=== PATIENT | male | born 1950 | race Caucasian/White ===

== ENCOUNTER 2021-02-26 15:22 | Inpatient (IN) ==
[2021-02-26] MEDS ORDERED: dexAMETHasone**PF** 10 MG/ML VIAL IV ONE (15:47)
[2021-02-26] MEDS ORDERED: SODIUM CHLORIDE 0.9% 500 ML IV ONE ×2 (15:47→17:12)
[2021-02-26] MEDS ORDERED: ACETAMINOPHEN 1,000 MG/100 ML VIAL IV STA (15:58)
[2021-02-26] MEDS ORDERED: ALBUTEROL HFA 8 GM INHALER INH ONE (15:58)
[2021-02-26] MEDS ORDERED: guaiFENesin 600 MG TABCR PO STA (15:58)
[2021-02-26] MEDS ORDERED: FAMOTIDINE 20MG IV PUSH 20 MG/5 ML SYR IV STA (15:59)
[2021-02-26] MEDS ORDERED: ONDANSETRON INJ 2 MG/ML 2 ML VIAL IV STA (15:59)
[2021-02-26] MEDS ORDERED: SODIUM CHLORIDE 0.9% 1000ML 1,000 ML IV SCH (16:00)
[2021-02-26 16:03] LABS: Hemoglobin 10.6 g/dL (14.0-18.0); Mean Corpuscular Hemoglobin 30.8 pg (25-34); Mean Corpuscular Hgb Conc 35.3 g/dL (32-36); Mean Corpuscular Volume 87.2 fL (80-100); Mean Platelet Volume 9.7 fL (7.4-10.4); Platelet Count 184 K/uL (130-400); RDW Coefficient of Variation 12.9 % (11.5-14.5); RDW Standard Deviation 41.7 fL (36.4-46.3); Red Blood Count 3.44 M/uL (4.7-6.1)
--- NOTE | 2021-02-26 16:09 | Emergency Department Note ---
Impression & Plan Pneumonia due to COVID-19 virus, Hyperglycemia, Renal insufficiency, Hypoxia ED Provider Note NAME: LANDRY OSBORNE AGE: 70 SEX: M ARRIVES VIA: Ambulance INFORMANT: Patient, ED PROVIDER(S): Ashish Ulloa MD CHIEF COMPLAINT: Weakness, sob, covid-19. PLAN: Disposition: Admit MEDICAL DECISION MAKING: The patient is a pleasant 70-year-old gentleman with a past medical history of Parkinson disease (per patient) who presents to the emergency department for worsening generalized weakness and shortness of breath this morning with O2 saturation 87% on room air by EMS in the setting of being diagnosed with COVID- 19 last week on hospital admission to [facility] after having a mechanical fall. Patient reports feeling feverishness, body aches and fatigue and generalized weakness that began approximately 10 days ago which contributed to his fall given his chronic fall risk in the setting of his Parkinson's. He reports that he had negative x-rays and CAT scan of his head but they did diagnose him with COVID-19 in addition to new onset atrial fibrillation. He remembers he was put on a blood thinner but does not recall the name at this time. He reports he did have a fall where he hit his forehead a couple of days after his discharge (Tuesday/Tuesday) but did not seek medical evaluation given that he did not have any abrasions this time. He reports he was thinking he was starting to feel better up until yesterday but this morning felt acutely worse. He reports feverishness, body aches, nausea but no vomiting but limited oral intake. He not take any of his medications including his Parkinson's medications today but he does not recall names of his medications. Attempt in progress to obtain Critical access hospital records. The patient is fatigued, ill-appearing but no acute distress, afebrile with stable vital signs. He appears clinically dry. He has no focal neurologic deficits. He has baseline mild rigidity with movements. EKG without overt acute ischemia. CXR with bilateral airspace opacities c/w known covid-19 infection. WBC 4.3K with lymphopenia to 0.22. H/H 10.6/30.0 without prior for comparison. Platelets wnl. VBG without significant abnormalities. Glucose 300s. Chemistry with Bicarb of 14 without Agap elevation. BHB not significantly elevated. Serum Osms wnl. Creatinine 2.2 without prior for comparison. BUN/Cr > 20 c/w patient's clinically dry appearance. AST 86 abd otherwise, LFTs without significant abnormalities. Lipase wnl. UA without convincing evidence of infection. CT head negative for acute process with left maxillary sinus disease noted in setting of Covid-19. Treatment initiated in ED with IVF hydration, apap, dexamethasone, guaifenesin, and albuterol MDI. Given worsening symptoms, no with hypoxia in setting of Covid-19 pna, reasonable to admit for further management. Patient agrees with this. Case was d/w Dr. Eckert [facility] [place] hospitalist who will evaluate the patient for admission. Triage Nursing notes reviewed and agree them. Prior medical records reviewed Vital Signs: reviewed and remarkable for hypoxia. Differential diagnosis: Infection, dehydration, metabolic abnormality, hypo/hyperglycemia, electrolyte disturbance, anemia, hypoxia, cardiac sources, intracerebral event, toxicologic, neurologic, as well as other pathologies. ER treatment provided: See below. Diagnostics interpreted by me: ECG: Atrial flutter, 82 bpm, no ectopy, no overt ST elevation or depression. Cardiac Monitoring: An order for continuous cardiac monitoring was placed and demonstrated Atrial flutter, 82 bpm, no ectopy. Laboratory studies: See below Imaging studies: See below Consultation(s): Case was d/w Dr. Eckert [facility] [place] hospitalist who will evaluate the patient for admission. HPI: The patient is a pleasant 70-year-old gentleman with a past medical history of Parkinson disease who presents emergency department for worsening generalized weakness and shortness of breath this morning with O2 saturation 87% on room air by EMS in the setting of being diagnosed with COVID-19 last week on hospital admission to [facility] after having a mechanical fall. Patient reports feeling feverishness, body aches and fatigue and generalized weakness that began approximately 10 days ago which contributed to his fall given his chronic fall risk in the setting of his Parkinson's. He reports that he had negative x-rays and CAT scan of his head but they did diagnose him with COVID-19 in addition to new onset atrial fibrillation. He remembers he was put on a blood thinner but does not recall the name at this time. He reports he did have a fall where he hit his forehead a couple of days after his discharge (Tuesday/Tuesday) but did not seek medical evaluation given that he did not have any abrasions this time. He reports he was thinking he was starting to feel better up until yesterday but this morning felt acutely worse. He reports feverishness, body aches, nausea but no vomiting but limited oral intake. He not take any of his medications including his Parkinson's medications today. ROS: See above HPI for pertinent positives & negatives. A total of 10 systems reviewed and were otherwise negative. PAST MEDICAL HISTORY:See Below PAST SURGICAL HISTORY:See Below FAMILY HISTORY:See Below SOCIAL HISTORY:See Below HOME MEDICATIONS:See Below ALLERGIES:See Below VITALS:See Below PHYSICAL EXAMINATION: GENERAL: Awake, alert, fatigued/ill-appearing, in no distress HENT: Normocephalic. Old scalp abrasion with overlying eschar and resolving right frontal contusion. No bony crepitus. Oropharynx with dry mucous membranes and otherwise unremarkable. EYES: Normal conjunctiva. Sclera non-icteric. NECK: Supple. No nuchal rigidity. FROM. No JVD. RESPIRATORY: Clear to auscultation. CARDIAC: Regular rate, normal rhythm. Extremities warm and well perfused. Pulses equal. ABDOMEN: Soft, non-distended. No tenderness to palpation. No rebound or guarding. No masses. RECTAL: Deferred. MUSCULOSKELETAL: Chest examination reveals no tenderness. The back is symmetrical on inspection without obvious abnormality. There is no CVA tenderness to palpation. No joint edema. LOWER EXTREMITIES: Calves are equal size bilaterally and non-tender. No edema. No discoloration. NEURO: No focal sensory or motor deficits noted. Masked facies. Mild baseline rigidity with movements in the setting of the patient's Parkinson disease. Generalized weakness with 4/5 strength in all extremities. SKIN: No rash or jaundice noted. 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 Dyslipidemia Essential hypertension GERD (gastroesophageal reflux disease) Normocytic anemia Obstructive sleep apnea Thoracic aortic aneurysm Type 2 diabetes mellitus Urinary retention Surgical History H/O left inguinal hernia repair History of surgical procedure on eye proper using laser Social History Smoking Status: Never smoker Second Hand Exposure: No; Do You Dip or Chew Tobacco: No; Tobacco Cessation Education Requested by Patient: No Hx Alcohol Use: No Hx Substance Use: No Preferred Language: Guyanese Communication Ability: Effective Inventory Specialist Manager Required: No Beliefs That Will Affect Care: None Current Living Situation: Spouse Other Information That Helps Us Care for You: No Feels Safe at Home: Yes Safety Concerns: Feels Safe At This Time Assistive Devices: CPAP, Glasses, Oxygen - Continuous and Walker Allergies Allergies Allergy/AdvReac Type Severity Reaction Status Date / Time atorvastatin [From Lipitor] AdvReac Myalgia Verified 02/26/21 18:02 rosuvastatin [From Crestor] AdvReac Myalgia Verified 02/26/21 18:02 simvastatin AdvReac Myalgia Verified 02/26/21 18:02 Home Meds Home Medications Medication Instructions Recorded Confirmed colesevelam [WelChol] 625 mg PO DAILY 02/26/21 02/26/21 dexamethasone [Decadron] 6 mg PO UD 02/26/21 02/26/21 ezetimibe 10 mg PO DAILY 02/26/21 02/26/21 hydralazine 100 mg PO TID 02/26/21 02/26/21 insulin lispro [Humalog KwikPen See Rx Instructions .ROUTE .COMPLEX 02/26/21 02/26/21 Insulin] isosorbide mononitrate 60 mg PO DAILY 02/26/21 02/26/21 lamotrigine 100 mg PO BID 02/26/21 02/26/21 patiromer calcium sorbitex 8.4 g PO DAILY 02/26/21 02/26/21 [Veltassa] pravastatin 20 mg PO DAILY 02/26/21 02/26/21 prazosin See Rx Instructions .ROUTE .COMPLEX 02/26/21 02/26/21 pregabalin 100 mg PO BID 02/26/21 02/26/21 primidone 50 mg PO UD 02/26/21 02/26/21 rivaroxaban [Xarelto] 20 mg PO DAILY 02/26/21 02/26/21 sodium bicarbonate 650 mg PO BID 02/26/21 02/26/21 spironolactone 100 mg PO BID 02/26/21 02/26/21 Results & Data (ED) Vital Signs Vital Signs - 24 hr 02/26/21 15:45 02/26/21 15:56 02/26/21 18:37 Temperature 36.1 C L 36.1 C L Temperature Source Oral Oral Pulse Rate 81 81 Pulse Rate [Left Finger] 72 74 Pulse Rhythm Regular Irregular Pulse Rhythm [Left Finger] Irregular Regular Pulse Strength Normal Pulse Strength [Left Finger] Normal Respiratory Rate 14 22 20 Respiratory Effort / Characteristics Non-Labored Respiratory Depth Normal Normal Normal Respiratory Pattern Regular Blood Pressure 147/71 H Blood Pressure [Left Arm] 147/71 H 156/87 H Blood Pressure Mean 96 Blood Pressure Mean [Left Arm] 96 110 Blood Pressure Position Lying Blood Pressure Position [Left Arm] Sitting Pulse Oximetry 92 96 95 Oxygen Delivery Method Room Air Room Air Sepsis Recent Fever Within 48 Hours No Sepsis New/Unexplained Change in Mental Status No Sepsis Action Taken by Nursing No Action Required Laboratory Data Attestation: I reviewed the patient's lab results. Result diagrams: 02/26/21 15:40 02/26/21 15:40 Lab Results 02/26/21 02/26/21 02/26/21 Range/Units 15:40 15:40 15:40 WBC 4.30 L (4.8-10.8) K/uL RBC 3.44 L (4.7-6.1) M/uL Hgb 10.6 L (14.0-18.0) g/dL Hct 30.0 L (42-52) % MCV 87.2 (80-100) fL MCH 30.8 (25-34) pg MCHC 35.3 (32-36) g/dL RDW Std Deviation 41.7 (36.4-46.3) fL RDW Coeff of Don 12.9 (11.5-14.5) % Plt Count 184 (130-400) K/uL MPV 9.7 (7.4-10.4) fL Immature Gran % (Auto) 0.2 % Neut % (Auto) 90.3 % Lymph % (Auto) 5.1 % Branch % (Auto) 4.4 % Eos % (Auto) 0.0 % Baso % (Auto) 0.0 % Neut # (Auto) 3.88 (1.4-6.5) K/uL Lymph # (Auto) 0.22 L (1.2-3.4) K/uL Branch # (Auto) 0.19 (0.11-0.59) K/uL Eos # (Auto) 0.00 (0-0.5) K/uL Baso # (Auto) 0.00 (0-0.2) K/uL Immature Gran # (Auto) 0.01 (0.00-0.02) K/uL PT 11.2 (9.0-12.0) Seconds INR 1.1 (0.9-1.1) VBG pH (7.36-7.41) VBG pCO2 (38-50) mmHg VBG pO2 mmHg VBG HCO3 mmol/L VBG O2 Saturation % VBG Base Excess mEq/L Barometric Pressure mm/Hg Sodium 131 L (136-145) mmol/L Potassium 4.6 (3.5-5.1) mmol/L Chloride 107 (98-107) mmol/L Carbon Dioxide 14 L (21-32) mmol/L Anion Gap 10.0 (3-11) BUN 44 H (7-18) mg/dl Creatinine 2.21 H (0.6-1.4) mg/dl Est Cr Clr Drug Dosing 34.0 ml/min Est GFR ( Amer) 34.0 Est GFR (Non-Af Amer) 29.3 BUN/Creatinine Ratio 20.1 H (10-20) Glucose 319 H* (70-99) mg/dl POC Glucose (70-99) mg/dl Osmolality (280-300) mOsm/kg Lactate (0.4-2.0) mmol/L Calcium 7.8 L (8.5-10.1) mg/dl Phosphorus 3.1 (2.5-4.9) mg/dl Magnesium 2.1 (1.8-2.4) mg/dl Total Bilirubin 0.5 (0.2-1) mg/dl Direct Bilirubin 0.2 (0-0.2) mg/dl AST 86 H (15-37) U/L ALT 78 (12-78) U/L Alkaline Phosphatase 60 (45-117) U/L Lactate Dehydrogenase (87-241) U/L Total Creatine Kinase 798 H (39-308) U/L Troponin I 0.015 (0-0.045) ng/ml C-Reactive Protein 11.60 H (0-0.29) mg/dl Total Protein 6.8 (6.4-8.2) gm/dl Albumin 2.7 L (3.4-5.0) gm/dl Globulin 4.1 H (2.5-4.0) gm/dl Albumin/Globulin Ratio 0.7 L (0.9-2) Lipase 221 (73-393) U/L Beta-Hydroxybutyric Acd 15.93 H (0.2-2.81) mg/dl Procalcitonin (0-0.5) ng/ml TSH 0.586 (0.300-4.500) uIu/ml Urine Color Urine Appearance (Clear) Urine pH (4.5-7.5) Ur Specific [place] (1.000-1.030) Urine Protein (Negative) Urine Glucose (UA) (Negative) Urine Ketones (Negative) Urine Blood (Negative) Urine Nitrite (Negative) Urine Bilirubin (Negative) Urine Urobilinogen (Negative) Ur Leukocyte Esterase (Negative) Urine WBC (Auto) (0-5) /hpf Urine RBC (Auto) (0-4) /hpf U Hyaline Cast (Auto) (0-5) /lpf U Epithel Cells (Auto) (0-5) /lpf Urine Bacteria (Auto) (Negative) Urine Yeast COVID-19 Eval Order SARS-CoV-2 (PCR) (Negative) Influenza Type A (PCR) (Neg) Influenza Type B (PCR) (Neg) RSV (RT-PCR) (Neg) 02/26/21 02/26/21 02/26/21 Range/Units 15:40 15:40 15:40 WBC (4.8-10.8) K/uL RBC (4.7-6.1) M/uL Hgb (14.0-18.0) g/dL Hct (42-52) % MCV (80-100) fL MCH (25-34) pg MCHC (32-36) g/dL RDW Std Deviation (36.4-46.3) fL RDW Coeff of Don (11.5-14.5) % Plt Count (130-400) K/uL MPV (7.4-10.4) fL Immature Gran % (Auto) % Neut % (Auto) % Lymph % (Auto) % Branch % (Auto) % Eos % (Auto) % Baso % (Auto) % Neut # (Auto) (1.4-6.5) K/uL Lymph # (Auto) (1.2-3.4) K/uL Branch # (Auto) (0.11-0.59) K/uL Eos # (Auto) (0-0.5) K/uL Baso # (Auto) (0-0.2) K/uL Immature Gran # (Auto) (0.00-0.02) K/uL PT (9.0-12.0) Seconds INR (0.9-1.1) VBG pH (7.36-7.41) VBG pCO2 (38-50) mmHg VBG pO2 mmHg VBG HCO3 mmol/L VBG O2 Saturation % VBG Base Excess mEq/L Barometric Pressure mm/Hg Sodium (136-145) mmol/L Potassium (3.5-5.1) mmol/L Chloride (98-107) mmol/L Carbon Dioxide (21-32) mmol/L Anion Gap (3-11) BUN (7-18) mg/dl Creatinine (0.6-1.4) mg/dl Est Cr Clr Drug Dosing ml/min Est GFR ( Amer) Est GFR (Non-Af Amer) BUN/Creatinine Ratio (10-20) Glucose (70-99) mg/dl POC Glucose (70-99) mg/dl Osmolality 296 (280-300) mOsm/kg Lactate (0.4-2.0) mmol/L Calcium (8.5-10.1) mg/dl Phosphorus (2.5-4.9) mg/dl Magnesium (1.8-2.4) mg/dl Total Bilirubin (0.2-1) mg/dl Direct Bilirubin (0-0.2) mg/dl AST (15-37) U/L ALT (12-78) U/L Alkaline Phosphatase (45-117) U/L Lactate Dehydrogenase 454 H (87-241) U/L Total Creatine Kinase (39-308) U/L Troponin I (0-0.045) ng/ml C-Reactive Protein Cancelled (0-0.29) mg/dl Total Protein (6.4-8.2) gm/dl Albumin (3.4-5.0) gm/dl Globulin (2.5-4.0) gm/dl Albumin/Globulin Ratio (0.9-2) Lipase (73-393) U/L Beta-Hydroxybutyric Acd (0.2-2.81) mg/dl Procalcitonin (0-0.5) ng/ml TSH (0.300-4.500) uIu/ml Urine Color Urine Appearance (Clear) Urine pH (4.5-7.5) Ur Specific [place] (1.000-1.030) Urine Protein (Negative) Urine Glucose (UA) (Negative) Urine Ketones (Negative) Urine Blood (Negative) Urine Nitrite (Negative) Urine Bilirubin (Negative) Urine Urobilinogen (Negative) Ur Leukocyte Esterase (Negative) Urine WBC (Auto) (0-5) /hpf Urine RBC (Auto) (0-4) /hpf U Hyaline Cast (Auto) (0-5) /lpf U Epithel Cells (Auto) (0-5) /lpf Urine Bacteria (Auto) (Negative) Urine Yeast COVID-19 Eval Order SARS-CoV-2 (PCR) (Negative) Influenza Type A (PCR) (Neg) Influenza Type B (PCR) (Neg) RSV (RT-PCR) (Neg) 02/26/21 02/26/21 02/26/21 Range/Units 15:40 17:34 17:49 WBC (4.8-10.8) K/uL RBC (4.7-6.1) M/uL Hgb (14.0-18.0) g/dL Hct (42-52) % MCV (80-100) fL MCH (25-34) pg MCHC (32-36) g/dL RDW Std Deviation (36.4-46.3) fL RDW Coeff of Don (11.5-14.5) % Plt Count (130-400) K/uL MPV (7.4-10.4) fL Immature Gran % (Auto) % Neut % (Auto) % Lymph % (Auto) % Branch % (Auto) % Eos % (Auto) % Baso % (Auto) % Neut # (Auto) (1.4-6.5) K/uL Lymph # (Auto) (1.2-3.4) K/uL Branch # (Auto) (0.11-0.59) K/uL Eos # (Auto) (0-0.5) K/uL Baso # (Auto) (0-0.2) K/uL Immature Gran # (Auto) (0.00-0.02) K/uL PT (9.0-12.0) Seconds INR (0.9-1.1) VBG pH 7.35 L (7.36-7.41) VBG pCO2 28 L (38-50) mmHg VBG pO2 39 mmHg VBG HCO3 15 mmol/L VBG O2 Saturation 72.0 % VBG Base Excess -9.1 mEq/L Barometric Pressure 720.6 mm/Hg Sodium (136-145) mmol/L Potassium (3.5-5.1) mmol/L Chloride (98-107) mmol/L Carbon Dioxide (21-32) mmol/L Anion Gap (3-11) BUN (7-18) mg/dl Creatinine (0.6-1.4) mg/dl Est Cr Clr Drug Dosing ml/min Est GFR ( Amer) Est GFR (Non-Af Amer) BUN/Creatinine Ratio (10-20) Glucose (70-99) mg/dl POC Glucose 360 H* (70-99) mg/dl Osmolality (280-300) mOsm/kg Lactate (0.4-2.0) mmol/L Calcium (8.5-10.1) mg/dl Phosphorus (2.5-4.9) mg/dl Magnesium (1.8-2.4) mg/dl Total Bilirubin (0.2-1) mg/dl Direct Bilirubin (0-0.2) mg/dl AST (15-37) U/L ALT (12-78) U/L Alkaline Phosphatase (45-117) U/L Lactate Dehydrogenase (87-241) U/L Total Creatine Kinase (39-308) U/L Troponin I (0-0.045) ng/ml C-Reactive Protein (0-0.29) mg/dl Total Protein (6.4-8.2) gm/dl Albumin (3.4-5.0) gm/dl Globulin (2.5-4.0) gm/dl Albumin/Globulin Ratio (0.9-2) Lipase (73-393) U/L Beta-Hydroxybutyric Acd (0.2-2.81) mg/dl Procalcitonin 0.81 H (0-0.5) ng/ml TSH (0.300-4.500) uIu/ml Urine Color Urine Appearance (Clear) Urine pH (4.5-7.5) Ur Specific [place] (1.000-1.030) Urine Protein (Negative) Urine Glucose (UA) (Negative) Urine Ketones (Negative) Urine Blood (Negative) Urine Nitrite (Negative) Urine Bilirubin (Negative) Urine Urobilinogen (Negative) Ur Leukocyte Esterase (Negative) Urine WBC (Auto) (0-5) /hpf Urine RBC (Auto) (0-4) /hpf U Hyaline Cast (Auto) (0-5) /lpf U Epithel Cells (Auto) (0-5) /lpf Urine Bacteria (Auto) (Negative) Urine Yeast COVID-19 Eval Order SARS-CoV-2 (PCR) (Negative) Influenza Type A (PCR) (Neg) Influenza Type B (PCR) (Neg) RSV (RT-PCR) (Neg) 02/26/21 02/26/21 02/26/21 Range/Units 17:50 17:50 17:50 WBC (4.8-10.8) K/uL RBC (4.7-6.1) M/uL Hgb (14.0-18.0) g/dL Hct (42-52) % MCV (80-100) fL MCH (25-34) pg MCHC (32-36) g/dL RDW Std Deviation (36.4-46.3) fL RDW Coeff of Don (11.5-14.5) % Plt Count (130-400) K/uL MPV (7.4-10.4) fL Immature Gran % (Auto) % Neut % (Auto) % Lymph % (Auto) % Branch % (Auto) % Eos % (Auto) % Baso % (Auto) % Neut # (Auto) (1.4-6.5) K/uL Lymph # (Auto) (1.2-3.4) K/uL Branch # (Auto) (0.11-0.59) K/uL Eos # (Auto) (0-0.5) K/uL Baso # (Auto) (0-0.2) K/uL Immature Gran # (Auto) (0.00-0.02) K/uL PT (9.0-12.0) Seconds INR (0.9-1.1) VBG pH (7.36-7.41) VBG pCO2 (38-50) mmHg VBG pO2 mmHg VBG HCO3 mmol/L VBG O2 Saturation % VBG Base Excess mEq/L Barometric Pressure mm/Hg Sodium (136-145) mmol/L Potassium (3.5-5.1) mmol/L Chloride (98-107) mmol/L Carbon Dioxide (21-32) mmol/L Anion Gap (3-11) BUN (7-18) mg/dl Creatinine (0.6-1.4) mg/dl Est Cr Clr Drug Dosing ml/min Est GFR ( Amer) Est GFR (Non-Af Amer) BUN/Creatinine Ratio (10-20) Glucose (70-99) mg/dl POC Glucose (70-99) mg/dl Osmolality (280-300) mOsm/kg Lactate (0.4-2.0) mmol/L Calcium (8.5-10.1) mg/dl Phosphorus (2.5-4.9) mg/dl Magnesium (1.8-2.4) mg/dl Total Bilirubin (0.2-1) mg/dl Direct Bilirubin (0-0.2) mg/dl AST (15-37) U/L ALT (12-78) U/L Alkaline Phosphatase (45-117) U/L Lactate Dehydrogenase (87-241) U/L Total Creatine Kinase (39-308) U/L Troponin I (0-0.045) ng/ml C-Reactive Protein (0-0.29) mg/dl Total Protein (6.4-8.2) gm/dl Albumin (3.4-5.0) gm/dl Globulin (2.5-4.0) gm/dl Albumin/Globulin Ratio (0.9-2) Lipase (73-393) U/L Beta-Hydroxybutyric Acd (0.2-2.81) mg/dl Procalcitonin (0-0.5) ng/ml TSH (0.300-4.500) uIu/ml Urine Color Yellow Urine Appearance Clear (Clear) Urine pH 5.0 (4.5-7.5) Ur Specific [place] 1.023 (1.000-1.030) Urine Protein 3+ H (Negative) Urine Glucose (UA) Trace H (Negative) Urine Ketones 1+ H (Negative) Urine Blood 3+ H (Negative) Urine Nitrite Negative (Negative) Urine Bilirubin Negative (Negative) Urine Urobilinogen Negative (Negative) Ur Leukocyte Esterase Negative (Negative) Urine WBC (Auto) 1-5 (0-5) /hpf Urine RBC (Auto) 0-4 (0-4) /hpf U Hyaline Cast (Auto) 1-5 (0-5) /lpf U Epithel Cells (Auto) 10-20 H (0-5) /lpf Urine Bacteria (Auto) Negative (Negative) Urine Yeast Not Reportable COVID-19 Eval Order CovFluRsv at [facility] SARS-CoV-2 (PCR) POSITIVE A* (Negative) Influenza Type A (PCR) Negative (Neg) Influenza Type B (PCR) Negative (Neg) RSV (RT-PCR) Negative (Neg) 02/26/21 Range/Units 18:09 WBC (4.8-10.8) K/uL RBC (4.7-6.1) M/uL Hgb (14.0-18.0) g/dL Hct (42-52) % MCV (80-100) fL MCH (25-34) pg MCHC (32-36) g/dL RDW Std Deviation (36.4-46.3) fL RDW Coeff of Don (11.5-14.5) % Plt Count (130-400) K/uL MPV (7.4-10.4) fL Immature Gran % (Auto) % Neut % (Auto) % Lymph % (Auto) % Branch % (Auto) % Eos % (Auto) % Baso % (Auto) % Neut # (Auto) (1.4-6.5) K/uL Lymph # (Auto) (1.2-3.4) K/uL Branch # (Auto) (0.11-0.59) K/uL Eos # (Auto) (0-0.5) K/uL Baso # (Auto) (0-0.2) K/uL Immature Gran # (Auto) (0.00-0.02) K/uL PT (9.0-12.0) Seconds INR (0.9-1.1) VBG pH (7.36-7.41) VBG pCO2 (38-50) mmHg VBG pO2 mmHg VBG HCO3 mmol/L VBG O2 Saturation % VBG Base Excess mEq/L Barometric Pressure mm/Hg Sodium (136-145) mmol/L Potassium (3.5-5.1) mmol/L Chloride (98-107) mmol/L Carbon Dioxide (21-32) mmol/L Anion Gap (3-11) BUN (7-18) mg/dl Creatinine (0.6-1.4) mg/dl Est Cr Clr Drug Dosing ml/min Est GFR ( Amer) Est GFR (Non-Af Amer) BUN/Creatinine Ratio (10-20) Glucose (70-99) mg/dl POC Glucose (70-99) mg/dl Osmolality (280-300) mOsm/kg Lactate 0.8 (0.4-2.0) mmol/L Calcium (8.5-10.1) mg/dl Phosphorus (2.5-4.9) mg/dl Magnesium (1.8-2.4) mg/dl Total Bilirubin (0.2-1) mg/dl Direct Bilirubin (0-0.2) mg/dl AST (15-37) U/L ALT (12-78) U/L Alkaline Phosphatase (45-117) U/L Lactate Dehydrogenase (87-241) U/L Total Creatine Kinase (39-308) U/L Troponin I (0-0.045) ng/ml C-Reactive Protein (0-0.29) mg/dl Total Protein (6.4-8.2) gm/dl Albumin (3.4-5.0) gm/dl Globulin (2.5-4.0) gm/dl Albumin/Globulin Ratio (0.9-2) Lipase (73-393) U/L Beta-Hydroxybutyric Acd (0.2-2.81) mg/dl Procalcitonin (0-0.5) ng/ml TSH (0.300-4.500) uIu/ml Urine Color Urine Appearance (Clear) Urine pH (4.5-7.5) Ur Specific [place] (1.000-1.030) Urine Protein (Negative) Urine Glucose (UA) (Negative) Urine Ketones (Negative) Urine Blood (Negative) Urine Nitrite (Negative) Urine Bilirubin (Negative) Urine Urobilinogen (Negative) Ur Leukocyte Esterase (Negative) Urine WBC (Auto) (0-5) /hpf Urine RBC (Auto) (0-4) /hpf U Hyaline Cast (Auto) (0-5) /lpf U Epithel Cells (Auto) (0-5) /lpf Urine Bacteria (Auto) (Negative) Urine Yeast COVID-19 Eval Order SARS-CoV-2 (PCR) (Negative) Influenza Type A (PCR) (Neg) Influenza Type B (PCR) (Neg) RSV (RT-PCR) (Neg) Administered Medications Carvedilol (Carvedilol 6.25 Mg Tab) 6.25 mg PO BID ARABELLA Stop: 03/28/21 22:12 Last Admin: 02/26/21 23:00 Dose: 6.25 mg Documented by: [id number] Potassium Chloride/Sodium Chloride (Normal Saline W/20 Meq Kcl) 20 meq in 1,000 mls @ 150 mls/hr IV .Q6H40M ARABELLA Stop: 03/29/21 00:59 Last Admin: 02/27/21 01:29 Dose: 150 mls/hr Documented by: [id number] Insulin Aspart (Insulin Aspart 100 Units/Ml 3 Ml Pen) 0 units SC Q4H ARABELLA Stop: 03/29/21 00:00 Last Admin: 02/27/21 00:07 Dose: 25 units Documented by: [id number] Cosigned by: [id number] Lamotrigine (Lamotrigine 100 Mg Tab) 100 mg PO BID ARABELLA Stop: 03/28/21 22:12 Last Admin: 02/26/21 23:01 Dose: 100 mg Documented by: [id number] Pregabalin (Pregabalin 100 Mg Cap) 100 mg PO BID ARABELLA Stop: 03/28/21 22:12 Last Admin: 02/26/21 23:07 Dose: 100 mg Documented by: [id number] Primidone (Primidone 50 Mg Tab) 50 mg PO HS ARABELLA Stop: 02/27/21 21:01 Last Admin: 02/26/21 23:33 Dose: 50 mg Documented by: [id number] Sodium Bicarbonate (Sodium Bicarbonate 650 Mg Tab) 650 mg PO BID ARABELLA Stop: 03/28/21 22:12 Last Admin: 02/26/21 23:01 Dose: 650 mg Documented by: [id number] Discontinued Medications Albuterol (Albuterol Hfa 8 Gm Inhaler) 2 puffs INH NOW ONE Stop: 02/26/21 15:59 Last Admin: 02/26/21 16:24 Dose: 2 puffs Documented by: [id number] Dexamethasone Sodium Phosphate (DexamethasonePf 10 Mg/Ml Vial) 10 mg IV NOW ONE Stop: 02/26/21 15:48 Last Admin: 02/26/21 16:21 Dose: 10 mg Documented by: [id number] Guaifenesin (Guaifenesin 600 Mg Tabcr) 600 mg PO NOW STA Stop: 02/26/21 15:59 Last Admin: 02/26/21 16:24 Dose: 600 mg Documented by: [id number] Sodium Chloride (Nss) 500 mls @ 999 mls/hr IV .Q31M ONE Stop: 02/26/21 16:17 Last Infusion: 02/26/21 17:46 Dose: 0 mls/hr Documented by: [id number] Admin: 02/26/21 16:23 Dose: 999 mls/hr Documented by: [id number] Acetaminophen (Ofirmev) 1,000 mg in 100 mls @ 400 mls/hr IV NOW STA Stop: 02/26/21 16:12 Last Infusion: 02/26/21 20:56 Dose: 0 mls/hr Documented by: [id number] Admin: 02/26/21 16:24 Dose: 400 mls/hr Documented by: [id number] Famotidine (Pepcid 20mg Iv Push) 20 mg in 5 mls @ 2.5 mls/min IV NOW STA Stop: 02/26/21 16:00 Last Admin: 02/26/21 16:24 Dose: 2.5 mls/min Documented by: [id number] Sodium Chloride (Nss 1000ml) 1,000 mls @ 125 mls/hr IV .Q8H ARABELLA Stop: 03/28/21 15:59 Last Infusion: 02/26/21 22:27 Dose: 0 mls/hr Documented by: [id number] Admin: 02/26/21 16:23 Dose: 125 mls/hr Documented by: [id number] Sodium Chloride (Nss) 500 mls @ 999 mls/hr IV .Q31M ONE Stop: 02/26/21 17:42 Last Infusion: 02/26/21 22:26 Dose: 0 mls/hr Documented by: [id number] Admin: 02/26/21 18:08 Dose: 999 mls/hr Documented by: [id number] Insulin Human Regular 6 units/ (Syringe) 6 mls @ 30 mls/min IV NOW ONE Stop: 02/26/21 23:01 Last Admin: 02/26/21 23:33 Dose: 30 mls/min Documented by: [id number] Cosigned by: [id number] Sodium Chloride (Nss 1000ml) 1,000 mls @ 100 mls/hr IV .Q10H ARABELLA Stop: 03/29/21 00:29 Last Admin: 02/27/21 00:37 Dose: Not Given Documented by: [id number] Insulin Aspart (Insulin Aspart 100 Units/Ml 3 Ml Pen) 0 units SC ACHS ARABELLA Stop: 03/28/21 20:59 Last Admin: 02/26/21 22:23 Dose: 13 units Documented by: [id number] Cosigned by: [id number] Insulin Glargine (Insulin Glargine Solostar 100 Units/Ml 3 Ml Pen) 35 units SC NOW ONE Stop: 02/26/21 21:01 Last Admin: 02/26/21 22:23 Dose: 35 units Documented by: [id number] Cosigned by: [id number] Insulin Human Regular (Novolin-R Insulin Per Unit Charge) 10 units IV NOW STA Stop: 02/26/21 19:35 Last Admin: 02/26/21 20:17 Dose: 10 units Documented by: [id number] Cosigned by: [id number] Ondansetron HCl (Ondansetron Inj 2 Mg/Ml 2 Ml Vial) 4 mg IV NOW STA Stop: 02/26/21 16:00 Last Admin: 02/26/21 16:21 Dose: 4 mg Documented by: [id number] Imaging Data Radiologist's Impression: Chest X-Ray 02/26/21 15:46 XR chest 1V portable CLINICAL HISTORY: Chest Pain COMPARISON STUDY: No previous studies for comparison. FINDINGS: Lung volumes are normal. There is no pneumothorax or pleural effusion. Moderate right midlung airspace opacity is noted. Mild left lower lung opacity is present. Cardiomegaly is noted without evidence for pulmonary edema. IMPRESSION: Moderate bilateral airspace opacities consistent with an infectious process such as viral pneumonia. Radiographic follow up to ensure resolution is recommended. ACT 112: Negative or not required by law. Electronically signed by: Chepe Gordon M.D. 02/26/2021 4:[address] 02/26/21 15:47 CT head/brain wo con CLINICAL HISTORY: fall, pain, anticoagulation COMPARISON STUDY: No previous studies for comparison. TECHNIQUE: Axial CT of the brain is performed from the vertex to the skull base. IV contrast was not administered for this examination. A dose lowering technique was utilized adhering to the principles of ALARA. CT DOSE: 1035.81 mGycm FINDINGS: No intra or extra-axial mass lesions are visualized. There is no CT evidence of acute cortical infarction. There is no evidence of midline shift. There is no acute hemorrhage. No calvarial fractures are visualized. There are minimal white matter hypodensities likely on a small vessel basis. There is mild cerebellar atrophy. There is mild ventricular dilatation. There is partial opacification of the left maxillary sinus. IMPRESSION: 1. No evidence of acute intracranial injury 2. Partial opacification left maxillary sinus 3. Mild ventricular dilatation. ACT 112: Negative or not required by law. Electronically signed by: Tim Mendoza M.D. 02/26/2021 4:48 PM Discharge Plan Visit Data Chief Complaint: Illness Stated Complaint: ILLNESS, COVID + ED Provider: Ashish Ulloa Discharge Problem: Pneumonia due to COVID-19 virus, Hyperglycemia, Renal insufficiency, Hypoxia Patient Disposition: Admitted As Inpatient
[2021-02-26 16:12] LABS: INR 1.1 (0.9-1.1); Prothrombin Time 11.2 Seconds (9.0-12.0)
--- NOTE | 2021-02-26 16:20 | XRay Report ---
XR chest 1V portable CLINICAL HISTORY: Chest Pain COMPARISON STUDY: No previous studies for comparison. FINDINGS: Lung volumes are normal. There is no pneumothorax or pleural effusion. Moderate right midlu ng airspace opacity is noted. Mild left lower lung opacity is present. Cardiomegaly is noted without evidence for pulmonary edema. IMPRESSION: Moderate bilateral airspace opacities consistent with an infectious process such as sabrina l pneumonia. Radiographic follow up to ensure resolution is recommended. ACT 112: Negative or not required by law. Electronically signed by: Chepe Gordon M.D. 02/26/2021 4:19 PM
[2021-02-26 16:27] LABS: Immature Granulocytes # (auto) 0.01 K/uL (0.00-0.02); Immature Granulocytes % (auto) 0.2 %; Lymphocytes # (auto) 0.22 K/uL (1.2-3.4); Lymphocytes % (auto) 5.1 %; Monocytes # (auto) 0.19 K/uL (0.11-0.59); Monocytes % (auto) 4.4 %; Neutrophils # (auto) 3.88 K/uL (1.4-6.5); Neutrophils % (auto) 90.3 %
[2021-02-26 16:42] LABS: Albumin Globulin Ratio 0.7 (0.9-2); Albumin Level 2.7 gm/dl (3.4-5.0); BUN Creatinine Ratio 20.1 (10-20); Bilirubin Direct 0.2 mg/dl (0-0.2); Bilirubin,Total 0.5 mg/dl (0.2-1); Calcium 7.8 mg/dl (8.5-10.1); Est GFR (Non-African American) 29.3; Globulin 4.1 gm/dl (2.5-4.0); Magnesium 2.1 mg/dl (1.8-2.4); Phosphorus 3.1 mg/dl (2.5-4.9); Potassium 4.6 mmol/L (3.5-5.1); Thyroid Stimulating Hormone 0.586 uIu/ml (0.300-4.500); Total Protein 6.8 gm/dl (6.4-8.2); Troponin I 0.015 ng/ml (0-0.045)
--- NOTE | 2021-02-26 16:49 | CT Scan Report ---
CT head/brain wo con CLINICAL HISTORY: fall, pain, anticoagulation COMPARISON STUDY: No previous studies for comparison. TECHNIQUE: Axial CT of the brain is performed from the vertex to the skull base. IV contrast was not administered for this examination. A dose lowering technique was utilized adhering to the principles of ALARA. CT DOSE: 1035.81 mGycm FINDINGS: No intra or extra-axial mass lesions are visualized. There is no CT evidence of acute cortical infarc tion. There is no evidence of midline shift. There is no acute hemorrhage. No calvarial fractures ar e visualized. There are minimal white matter hypodensities likely on a small vessel basis. There is mild cerebellar atrophy. There is mild ventricular dilatation. There is partial opacification of the left maxillary sinus. IMPRESSION: 1. No evidence of acute intracranial injury 2. Partial opacification left maxillary sinus 3. Mild ventricular dilatation. ACT 112: Negative or not required by law. Electronically signed by: Tim Mendoza M.D. 02/26/2021 4:48 PM
[2021-02-26 16:57] LABS: Beta-Hydroxybutyrate 15.93 mg/dl (0.2-2.81)
--- NOTE | 2021-02-26 17:39 | History & Physical Report ---
Date of Service February 26, 2021 Assessment & Plan (1) Pneumonia due to COVID-19 virus: Covid isolation precautions Self prone as able Continue dexamethasone 6 mg IV daily (2) Hypoxia: Without respiratory distress Aim O2 sats > 90% (3) Atrial flutter: New on last admission at [facility] TSH WNL Start carvedilol 6.25mg BID (pt on 12.5mg PO BID in [place]) Anticoagulation with Xarelto (4) Chronic kidney disease, stage III (moderate): Per prior notes from [facility] baseline Cr 1.85 therefore he is not far off his baseline. Under Dr Aj in [place] - will request last clinic note Will continue sodium bicarbonate 650mg PO BID presumably for this. Will hold Veltassa as potassium currently normal. (5) Recurrent falls: Very unclear history regarding this. Patient will need PT/OT and possibly rehabilitation. (6) Type 2 diabetes mellitus: Unknown HbA1C Very confusing home regimen listed by the patient and his as takes humalog and glipizide but no long acting insulin From [facility] notes he is on metformin, glipizide and Victoza but he denies he has been on these for years. (7) Essential hypertension: He is on many more antihypertensives that listed on [facility] notes. Possible reason for his continued dizziness at home. Will hold his hydralazine and spironolactone as I am not sure he needs these. Start carvedilol as above. I am unclear on the reasons he is on prazosin (it is prescribed by his cardiolo gist therefore presumably for his BP therefore will hold currently) (8) Obstructive sleep apnea: Unclear history of this but he denies being on CPAP at home (9) Coronary artery disease: Patient is only on Xarelto per med list from his . Will request Dr Muñoz's previous clinic note (10) Chronic congestive heart failure: No acute exacerbation suspected. Taking spironolactone at home but this is not mentioned on [facility] notes therefore unclear whether he was getting it there. Will hold for now and monitor fluid balance. (11) Peripheral neuropathy: Continue Lyrica 100mg PO BID (12) Tremor: The patient reports he has Parkinson's but cannot list any medications for this. I suspect he is being treated for an essential tremor with primidone. Notes requested from his neurologist. (13) BPH (benign prostatic hyperplasia): Possible diagnosis. Mentioned on [facility] notes. Patient denies being on tamsulosin or any urinary problems. Bladder scan PVR (14) Normocytic anemia: Stable at baseline (15) DVT prophylaxis: Continue Xarelto 20mg PO daily Admission and Anticipated Discharge Date Admission Date: February 26, 2021 History of Present Illness Chief Complaint: COVID-19 pneumonia, falls Primary Care Provider: Eduard Saldana Rickey Parker is a 70-year-old male who presents to the ER via EMS with COVID-19 with worsening fatigue and shortness of breath. Unclear when his symptoms started per patient recollection. He was admitted at [facility] from 02/17/21 to 02/19/21 due to a fall at home (tripped over carpet and hit his head on recliner) and notes 1 week of symptoms in those notes. On admission he was noted to have COVID-19 pneumonia but was not hypoxic at that time so no treatment was started. He was noted to have new onset atrial flutter (unknown whether TTE was taken). It was noted on cardiology note that he was rate controlled with his usual carvedilol but there is no outpatient prescription of this and the patient and his deny they are taking it. He was started on Xarelto for anti coagulation. It does note ORA on [facility] notes with Cr 2.08 however on calling the [facility] lab his baseline is around 1.85 from December. He was started on oral dexamethasone 02/24 by his PCP. The patient is very unclear on the timeline of events and paperwork from [facility] suggests a very different medical regimen from what he, his and the external pharmacy med rec is suggesting he takes. In the ER CT head was negative for acute intracranial abnormalities but did not opacification of left maxillary sinus (also noted on CT in [place]). CXR concerning for moderate bilateral airspace opacities consistent with an infectious process such as viral pneumonia. He was referred to medicine for admission and ongoing management of COVID-19 and hypoxia. Allergies Allergy/AdvReac Type Severity Reaction Status Date / Time atorvastatin [From Lipitor] AdvReac Myalgia Verified 02/26/21 18:02 rosuvastatin [From Crestor] AdvReac Myalgia Verified 02/26/21 18:02 simvastatin AdvReac Myalgia Verified 02/26/21 18:02 Home Medications Medication Instructions Recorded Confirmed Type colesevelam [WelChol] 625 mg PO DAILY 02/26/21 02/26/21 History dexamethasone [Decadron] 6 mg PO UD 02/26/21 02/26/21 History ezetimibe 10 mg PO DAILY 02/26/21 02/26/21 History hydralazine 100 mg PO TID 02/26/21 02/26/21 History insulin lispro [Humalog KwikPen See Rx Instructions .ROUTE .COMPLEX 02/26/21 02/26/21 History Insulin] isosorbide mononitrate 60 mg PO DAILY 02/26/21 02/26/21 History lamotrigine 100 mg PO BID 02/26/21 02/26/21 History patiromer calcium sorbitex 8.4 g PO DAILY 02/26/21 02/26/21 History [Veltassa] pravastatin 20 mg PO DAILY 02/26/21 02/26/21 History prazosin See Rx Instructions .ROUTE .COMPLEX 02/26/21 02/26/21 History pregabalin 100 mg PO BID 02/26/21 02/26/21 History primidone 50 mg PO UD 02/26/21 02/26/21 History rivaroxaban [Xarelto] 20 mg PO DAILY 02/26/21 02/26/21 History sodium bicarbonate 650 mg PO BID 02/26/21 02/26/21 History spironolactone 100 mg PO BID 02/26/21 02/26/21 History Past Med/Surg History Medical History (Updated 02/27/21 @ 08:52 by Fautso Eckert MD) Chronic congestive heart failure LVEF 45% Chronic kidney disease, stage III (moderate) Coronary artery disease 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 Dyslipidemia Essential hypertension GERD (gastroesophageal reflux disease) Normocytic anemia Obstructive sleep apnea Thoracic aortic aneurysm Type 2 diabetes mellitus Urinary retention Surgical History H/O left inguinal hernia repair History of surgical procedure on eye proper using laser Social History Smoking Status: Never smoker Second Hand Exposure: No; Do You Dip or Chew Tobacco: No; Tobacco Cessation Education Requested by Patient: No Hx Alcohol Use: No Hx Substance Use: No Preferred Language: German Communication Ability: Effective 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 Beliefs That Will Affect Care: None Current Living Situation: Spouse Other Information That Helps Us Care for You: No Feels Safe at Home: Yes Safety Concerns: Feels Safe At This Time Assistive Devices: Glasses and Oxygen - Continuous Review of Systems Review of Systems: All systems reviewed & are unremarkable except as noted in HPI & below Physical Exam Constitutional: well developed; + not well nourished and no acute distress Eyes: PERRL, conjunctivae normal, anicteric sclerae (Left eye drooping) ENMT: external ear and nose normal, oropharynx normal Neck: trachea midline, no thyromegaly Respiratory: normal respiratory effort, + cough and able to speak in complete sentences; no respiratory distress, no labored breathing and does not use accessory muscles Auscultation: + diminished lung sounds (bibasal); no crackles and no wheezes Cardiovascular: Rate/Rhythm: regular rhythm and + tachycardic Heart Sounds: no murmur Vessels: no JVD Extremities: normal capillary refill and + pedal edema (trace b/l ankles); no calf tenderness Gastrointestinal (Abdomen): normal bowel sounds, soft, nontender, no hepatosplenomegaly Musculoskeletal: no cyanosis or clubbing, extremities motor strength 5/5 Skin: no rashes, warm and dry Neurologic: CN's II-XI intact bilaterally, moves all extremities, awake and + confused Psychiatric: Orientation: alert, oriented to person and oriented to place; + not oriented to time Genitourinary: no CVA tenderness Results & Data Results & Data ([facility]) Vital Signs (Past 12 Hours) Vital Signs Temp Pulse Pulse Resp BP BP Pulse Ox 02/26/21 15:56 36.1 C L 81 72 22 147/71 H 96 02/26/21 15:45 36.1 C L 81 14 147/[address] head/brain wo con IMPRESSION: 1. No evidence of acute intracranial injury 2. Partial opacification left maxillary sinus 3. Mild ventricular dilatation. XR chest 1V portable IMPRESSION: Moderate bilateral airspace opacities consistent with an infectious process such as viral pneumonia. Radiographic follow up to ensure resolution is recommended. Medications Administered ER medications given: NSS 500 mL bolus Dexamethasone 10 mg IV Guaifenesin 600 mg p.o. Albuterol 2 puffs inhaler Acetaminophen 1 g IV Famotidine 20 mg IV Ondansetron 4 mg IV ECG Rate (beats per minute): 82 Rhythm: atrial flutter Findings: + left axis deviation Comparison ECG Date: no prior available Code Status & VTE Plan Code Status Full VTE Prophylaxis Plan VTE Prophylaxis will be ordered: Yes PG Care Time/CCT Total # of Minutes Spent Total Time Spent with Patient: Total time spent is greater than 50% in coordination of care (as documented) at patient's floor/unit and/or counseling patient: Coding Level of Care Code 86469 Initial Inpt Care Lvl 3 Diagnoses Pneumonia due to COVID-19 virus U07.1; J12.82 Hypoxia R09.02 Atrial flutter I48.3 Atrial flutter type: typical Chronic kidney disease, stage III (moderate) N18.30 Recurrent falls R29.6 Type 2 diabetes mellitus E11.65; Z79.4 Diabetes mellitus residential insulin use: with residential use Diabetes mellitus complication status: with hyperglycemia Essential hypertension I10 Obstructive sleep apnea G47.33 Coronary artery disease I25.10 Chronic congestive heart failure I50.32 Heart failure type: diastolic Peripheral neuropathy G62.9 Tremor R25.1 BPH (benign prostatic hyperplasia) N40.0 Normocytic anemia D64.9 DVT prophylaxis Z29.9 (1) Type 2 diabetes mellitus Diabetes mellitus watermelon harvesting supervisor insulin use: with watermelon harvesting supervisor use Diabetes mellitus complication status: with hyperglycemia Qualified Code(s): E11.65 - Type 2 diabetes mellitus with hyperglycemia; Z79.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
[2021-02-26 17:47] LABS: Base Excess VBG -9.1 mEq/L; pH VBG 7.35 (7.36-7.41)
[2021-02-26 18:07] LABS: Appearance Urine Clear (Clear); Bacteria Urine Automated Negative (Negative); Bilirubin Urine Negative (Negative); Blood Urine 3+ (Negative); Color Urine Yellow; Glucose Urine UA Trace (Negative); Ketones Urine 1+ (Negative); Leukocyte Esterase Urine Negative (Negative); Nitrite Urine Negative (Negative); Protein Urine 3+ (Negative); RBC Urine Automated 0-4 /hpf (0-4); Specific Gravity Urine 1.023 (1.000-1.030); Urobilinogen Urine Negative (Negative)
[2021-02-26 18:14] LABS: C Reactive Protein 11.6 mg/dl (0-0.29)
[2021-02-26 18:43] LABS: Influenza A virus by PCR Negative (Neg); Influenza B virus by PCR Negative (Neg); RSV by PCR Negative (Neg)
[2021-02-26 19:10] LABS: SARS CoV2 RNA(COVID-19) InHosp POSITIVE (Negative)
[2021-02-26] MEDS ORDERED: NovoLIN-R INSULIN PER UNIT CHARGE IV STA (19:34)
[2021-02-26] MEDS ORDERED: INSULIN ASPART 100 UNITS/ML 3 ML PEN SC SCH (21:00)
[2021-02-26] MEDS ORDERED: INSULIN GLARGINE SOLOSTAR 100 UNITS/ML 3 ML PEN SC ONE (21:00)
[2021-02-26] MEDS ORDERED: PHARMACY GLYCEMIC MGMT CONSULT PRN (22:56)
[2021-02-26] MEDS ORDERED: INSULIN HUMAN REGULAR PER UNIT 6 UNITS in SYRINGE 5.94 ML IV ONE (23:00)
[2021-02-26] MEDS: carvediloL 6.25 MG TAB PO SCH (23:00)
[2021-02-26] MEDS: SODIUM BICARBONATE 650 MG TAB PO SCH (23:01)
[2021-02-26] MEDS: lamoTRIgine 100 MG TAB PO SCH (23:01)
[2021-02-26] MEDS: PREGABALIN 100 MG CAP PO SCH (23:07)
[2021-02-26] MEDS ORDERED: DEXTROSE 50% 50 ML SYRINGE IV PRN (23:15)
[2021-02-26] MEDS ORDERED: GLUCOSE 10 TABS/TUBE PO PRN (23:15)
[2021-02-26] MEDS ORDERED: GLUCAGON FOR INJ 1 MG VIAL SQ PRN (23:15)
[2021-02-26] MEDS ORDERED: GLUCOSE 40% GEL 15 GM TUBE PO PRN (23:15)
[2021-02-26] MEDS: PRIMIDONE 50 MG TAB PO SCH (23:33)
[2021-02-27] MEDS ORDERED: INSULIN ASPART 100 UNITS/ML 3 ML PEN SC SCH
[2021-02-27] MEDS: INSULIN ASPART 100 UNITS/ML 3 ML PEN SC SCH ×7 (00:07→21:11)
[2021-02-27] MEDS ORDERED: SODIUM CHLORIDE 0.9% 1000ML 1,000 ML IV SCH (00:30)
[2021-02-27] MEDS ORDERED: NSS + 20MEQ KCL 20 MEQ/1,000 ML BAG IV SCH (01:00)
[2021-02-27 07:15] LABS: Hematocrit (blood only) 32.2 % (42-52); Hemoglobin 11.3 g/dL (14.0-18.0); Immature Granulocytes # (auto) 0.01 K/uL (0.00-0.02); Immature Granulocytes % (auto) 0.1 %; Lymphocytes # (auto) 0.44 K/uL (1.2-3.4); Lymphocytes % (auto) 6.3 %; Mean Corpuscular Hemoglobin 30.9 pg (25-34); Mean Corpuscular Hgb Conc 35.1 g/dL (32-36); Mean Platelet Volume 9.7 fL (7.4-10.4); Monocytes # (auto) 0.21 K/uL (0.11-0.59); Neutrophils % (auto) 90.6 %; Platelet Count 220 K/uL (130-400); RDW Coefficient of Variation 12.9 % (11.5-14.5); RDW Standard Deviation 41.8 fL (36.4-46.3); Red Blood Count 3.66 M/uL (4.7-6.1); White Blood Count 6.96 K/uL (4.8-10.8)
[2021-02-27 07:57] LABS: Albumin Level 2.6 gm/dl (3.4-5.0); BUN Creatinine Ratio 20.9 (10-20); Calcium 8.2 mg/dl (8.5-10.1); Creatinine Clr Calc Pharmacy 39.2 ml/min; Est GFR (African American) 39.5; Est GFR (Non-African American) 34.1; Potassium 4.6 mmol/L (3.5-5.1)
[2021-02-27 08:08] LABS: Albumin Globulin Ratio 0.6 (0.9-2); Bilirubin,Total 0.4 mg/dl (0.2-1); Globulin 4.1 gm/dl (2.5-4.0); Total Protein 6.7 gm/dl (6.4-8.2)
[2021-02-27] MEDS: carvediloL 6.25 MG TAB PO SCH ×2 (08:26→21:10)
[2021-02-27] MEDS: dexAMETHasone 6 MG in SYRINGE 0 ML IV SCH (08:26)
[2021-02-27] MEDS: RIVAROXABAN 20 MG TAB PO SCH (08:27)
[2021-02-27] MEDS: EZETIMIBE 10 MG TABLET PO SCH (08:27)
[2021-02-27] MEDS: lamoTRIgine 100 MG TAB PO SCH ×2 (08:27→21:09)
[2021-02-27] MEDS: SODIUM BICARBONATE 650 MG TAB PO SCH ×2 (08:28→21:09)
[2021-02-27] MEDS: PRAVASTATIN SOD 20 MG TAB PO SCH (08:28)
[2021-02-27] MEDS: PREGABALIN 100 MG CAP PO SCH ×2 (08:32→21:14)
[2021-02-27] MEDS ORDERED: INSULIN GLARGINE SOLOSTAR 100 UNITS/ML 3 ML PEN SC SCH ×2 (09:00→21:00)
[2021-02-27 09:12] LABS: Estimated Average Glucose 174 mg/dl; Hemoglobin A1C 7.7 % (4.5-5.6)
--- NOTE | 2021-02-27 09:58 | Pharmacy Report ---
Pharmacy Glycemic Short Note 2 - Date of Service February 27, 2021 - Glycemic Short BSG Results (Last 24 hours): 02/26/21 02/26/21 02/26/21 15:40 17:49 21:45 Glucose 319 H* POC Glucose 360 H* 424 H* 02/26/21 02/26/21 02/27/21 22:14 22:15 00:05 Glucose POC Glucose 387 H* 397 H* 390 H* 02/27/21 02/27/21 02/27/21 00:05 02:03 02:07 Glucose POC Glucose 377 H* 358 H* 345 H* 02/27/21 02/27/21 02/27/21 04:02 06:51 07:35 Glucose 116 H POC Glucose 256 H 71 02/27/21 07:36 Glucose POC Glucose 69 L* OUTPATIENT ANTIDIABETIC REGIMEN: * Humalog 18 units with breakfast + 4 units with lunch + 8 units with dinner * Unclear if he takes the following meds: glipizide, victoza, metformin * Discussed with Dr Eckert 02/26: Pt and are poor historians with outpatient regimen - are able to verbalize that he does indeed take the humalog as listed above but they aren't sure if he is taking the metformin, glipizide, or victoza. * A1c = 7.7% on 02/27/21 ASSESSMENT: * 70yo T2DM male admitted for COVID-19 PNA. Pt with severe hyperglycemia secondary to outpatient dexamethasone (for COVID) plus illness/stress. * Outpatient regimen is unclear - did not have an A1c on 02/26/21 therefore, started with weight based SQ basal bolus insulin dosing for steroid induced hyperglycemia. * Pt received Lantus 35 units SQ (0.4 units/kg) x 1 + Q4hrs NovoLog + IV insulin boluses (10 units at 2017 + 6 units at 2300) * Pt with LOW BSG this AM at 69 mg/dl. Most likely due to 13 + 28 + 12 units of NovoLog given Q4hrs overnight. * Will loosen insulin regimen today to prevent low tomorrow. PLAN FOR INPATIENT GLYCEMIC CONTROL: * Hold outpatient oral diabetes medications * Basal insulin * Decrease Lantus from 35 to 30 units SQ HS * Considered starting daily NPH for DXM this AM- however, patient already has adequate basal on board from last evening's dosing. * Bolus insulin: loosen CF/CR * NovoLog per scale ACHS or Q6hrs while NPO * Goal Range: Low 110 mg/dL - High 140 mg/dL * Correction Factor: 25 mg/dL/unit * Nutritional / Prandial insulin per carb ratio of 1 unit per 8 grams CHO consumed PLAN FOR DISCHARGE: * TBD- A1c is in goal range for age/co-morbidities; however need to work with patient and educator to determine exact outpatient regimen.
--- NOTE | 2021-02-27 12:42 | Electrocardiogram Report ---
Test Reason : Blood Pressure : / mmHG Vent. Rate : 082 BPM Atrial Rate : 246 BPM P-R Int : 000 ms QRS Dur : 080 ms QT Int : 334 ms P-R-T Axes : 244 -54 -18 degrees QTc Int : 390 ms Atrial flutter with 3:1 A-V conduction Left axis deviation Inferior infarct , age undetermined Anterior infarct , age undetermined Abnormal ECG No previous ECGs available Confirmed by Delano Delvalle ([id number]) on 02/27/2021 12:42:31 PM Referred By: REFERRED SELF Confirmed By:Delano Delvalle
--- NOTE | 2021-02-27 13:30 | Electrocardiogram Report ---
Test Reason : Blood Pressure : / mmHG Vent. Rate : 079 BPM Atrial Rate : 237 BPM P-R Int : 000 ms QRS Dur : 076 ms QT Int : 468 ms P-R-T Axes : 256 -51 -03 degrees QTc Int : 536 ms Atrial flutter with 3:1 A-V conduction Left axis deviation Low voltage QRS Inferior infarct (cited on or before 26-FEB-2021) Possible Anterolateral infarct (cited on or before 26-FEB-2021) Abnormal ECG When compared with ECG of 26-FEB-2021 15:34, (unconfirmed) T wave inversion now evident in Inferior leads Nonspecific T wave abnormality now evident in Lateral leads QT has lengthened Confirmed by Delano Delvalle ([id number]) on 02/27/2021 1:30:50 PM Referred By: REFERRED SELF Confirmed By:Delano Delvalle
--- NOTE | 2021-02-27 15:57 | Hospitalist Progress Note ---
Date of Service February 27, 2021 Assessment & Plan (1) Pneumonia due to COVID-19 virus: Covid isolation precautions Self prone as able Continue dexamethasone 6 mg IV daily, day 2 will continue ISB, add flutter valve start on Zithromax 500mg PO daily stable on low flow nasal canula today, try to wean as tolerated (2) Hypoxia: Without respiratory distress Aim O2 sats > 90% stable on 3L this afternoon, slowly improving (3) Atrial flutter: New on last admission at [facility] TSH WNL continue carvedilol 6.25mg BID, HR is < 100 Anticoagulation with Xarelto (4) Chronic kidney disease, stage III (moderate): Per prior notes from [facility] baseline Cr 1.85 therefore he is not far off his baseline. Under Dr Aj in [place] - will request last clinic note Will continue sodium bicarbonate 650mg PO BID presumably for this. Will hold [place] as potassium currently normal Cr is 1.8, making urine (5) Recurrent falls: Very unclear history regarding this. Patient will need PT/OT, anticipate he will need rehabilitation. (6) Type 2 diabetes mellitus: HbA1C - 7.7% Novolog SS, sugars better this morning Lantus 30 units HS (7) Essential hypertension: He is on many more antihypertensives that listed on [facility] notes. Possible reason for his continued dizziness at home. Will hold his hydralazine and spironolactone BP stable on Coreg 6.25mg BID I am unclear on the reasons he is on prazosin (it is prescribed by his cardio logist therefore presumably for his BP therefore will hold currently) (8) Obstructive sleep apnea: Unclear history of this but he denies being on CPAP at home (9) Coronary artery disease: Patient is only on Xarelto per med list from his . Will request Dr Muñoz's previous clinic note (10) Chronic congestive heart failure: No acute exacerbation suspected. Taking spironolactone at home but this is not mentioned on [facility] notes therefore unclear whether he was getting it there. Will hold for now and monitor fluid balance. (11) Peripheral neuropathy: Continue Lyrica 100mg PO BID (12) Tremor: The patient reports he has Parkinson's but cannot list any medications for this. I suspect he is being treated for an essential tremor with primidone. Notes requested from his neurologist. (13) BPH (benign prostatic hyperplasia): Possible diagnosis. Mentioned on [facility] notes. Patient denies being on tamsulosin or any urin jaki problems. Bladder scan PVR (14) Normocytic anemia: Stable at baseline (15) DVT prophylaxis: Continue Xarelto 20mg PO daily Admission and Anticipated Discharge Date Admission Date: February 26, 2021 Subjective patient is feeling better since he was admitted, able to turn him down from 6L this morning to 3L he is sitting up in a chair says he has been ill for at least 10 days, was dizzy and falling at home, does not think he lost consciousness he says he was feeling short of breath, cough producing yellow sputum, had the chills, poor appetite, no nausea, no diarrhea reviewed chart reviewed labs Review of Systems Review of Systems: All systems reviewed & are unremarkable except as noted in Subjective Physical Exam Constitutional: well developed, well nourished and + ill appearing; no acute distress Neck: trachea midline, no thyromegaly Respiratory: normal respiratory effort, lungs clear to auscultation + cough; no labored breathing and not tachypneic Cardiovascular: Rate/Rhythm: regular rate and + irregularly irregular Heart Sounds: normal S1 and normal S2; no murmur Extremities: normal capillary refill; no edema Gastrointestinal (Abdomen): normal bowel sounds, soft, nontender, no hepatosplenomegaly Musculoskeletal: no cyanosis or clubbing, extremities motor strength 5/5 Skin: no rashes, warm and dry Neurologic: patellar DTR's 2+ bilat, sensation intact and PERRL, EOMI, accommodation nl, no face palsy, no dysarthria Psychiatric: A+Ox3, euthymic affect Lymphatic: no cervical or axillary lymphadenopathy Results & Data Results & Data ([facility]) Vital Signs (Past 12 Hours) Vital Signs Temp Pulse Pulse Resp BP Pulse Ox 02/27/21 15:24 37.0 C 76 20 123/70 99 02/27/21 11:12 37.0 C 73 20 149/63 H 96 02/27/21 07:30 79 02/27/21 07:11 37.1 C 85 24 105/77 91 Laboratory Results Laboratory Results - last 24 hr 02/26/21 02/26/21 02/26/21 15:40 15:40 15:40 WBC 4.30 L RBC 3.44 L Hgb 10.6 L Hct 30.0 L MCV 87.2 MCH 30.8 MCHC 35.3 RDW Std Deviation 41.7 RDW Coeff of Don 12.9 Plt Count 184 MPV 9.7 Immature Gran % (Auto) 0.2 Neut % (Auto) 90.3 Lymph % (Auto) 5.1 [place] % (Auto) 4.4 Eos % (Auto) 0.0 Baso % (Auto) 0.0 Neut # (Auto) 3.88 Lymph # (Auto) 0.22 L [place] # (Auto) 0.19 Eos # (Auto) 0.00 Baso # (Auto) 0.00 Immature Gran # (Auto) 0.01 PT 11.2 INR 1.1 VBG pH VBG pCO2 VBG pO2 VBG HCO3 VBG O2 Saturation VBG Base Excess Barometric Pressure Sodium 131 L Potassium 4.6 Chloride 107 Carbon Dioxide 14 L Anion Gap 10.0 BUN 44 H Creatinine 2.21 H Est Cr Clr Drug Dosing 34.0 Est GFR ( Amer) 34.0 Est GFR (Non-Af Amer) 29.3 BUN/Creatinine Ratio 20.1 H Glucose 319 H* POC Glucose Estimat Average Glucose Hemoglobin A1c Osmolality Lactate Calcium 7.8 L Phosphorus 3.1 Magnesium 2.1 Total Bilirubin 0.5 Direct Bilirubin 0.2 AST 86 H ALT 78 Alkaline Phosphatase 60 Lactate Dehydrogenase Total Creatine Kinase 798 H Troponin I 0.015 C-Reactive Protein 11.60 H Total Protein 6.8 Albumin 2.7 L Globulin 4.1 H Albumin/Globulin Ratio 0.7 L Lipase 221 Beta-Hydroxybutyric Acd 15.93 H Procalcitonin TSH 0.586 Urine Color Urine Appearance Urine pH Ur Specific [place] Urine Protein Urine Glucose (UA) Urine Ketones Urine Blood Urine Nitrite Urine Bilirubin Urine Urobilinogen Ur Leukocyte Esterase Urine WBC (Auto) Urine RBC (Auto) U Hyaline Cast (Auto) U Epithel Cells (Auto) Urine Bacteria (Auto) Urine Yeast COVID-19 Eval Order SARS-CoV-2 (PCR) Influenza Type A (PCR) Influenza Type B (PCR) RSV (RT-PCR) 02/26/21 02/26/21 02/26/21 15:40 15:40 15:40 WBC RBC Hgb Hct MCV MCH MCHC RDW Std Deviation RDW Coeff of Don Plt Count MPV Immature Gran % (Auto) Neut % (Auto) Lymph % (Auto) [place] % (Auto) Eos % (Auto) Baso % (Auto) Neut # (Auto) Lymph # (Auto) [place] # (Auto) Eos # (Auto) Baso # (Auto) Immature Gran # (Auto) PT INR VBG pH VBG pCO2 VBG pO2 VBG HCO3 VBG O2 Saturation VBG Base Excess Barometric Pressure Sodium Potassium Chloride Carbon Dioxide Anion Gap BUN Creatinine Est Cr Clr Drug Dosing Est GFR ( Amer) Est GFR (Non-Af Amer) BUN/Creatinine Ratio Glucose POC Glucose Estimat Average Glucose Hemoglobin A1c Osmolality 296 Lactate Calcium Phosphorus Magnesium Total Bilirubin Direct Bilirubin AST ALT Alkaline Phosphatase Lactate Dehydrogenase 454 H Total Creatine Kinase Troponin I C-Reactive Protein Cancelled Total Protein Albumin Globulin Albumin/Globulin Ratio Lipase Beta-Hydroxybutyric Acd Procalcitonin TSH Urine Color Urine Appearance Urine pH Ur Specific [place] Urine Protein Urine Glucose (UA) Urine Ketones Urine Blood Urine Nitrite Urine Bilirubin Urine Urobilinogen Ur Leukocyte Esterase Urine WBC (Auto) Urine RBC (Auto) U Hyaline Cast (Auto) U Epithel Cells (Auto) Urine Bacteria (Auto) Urine Yeast COVID-19 Eval Order SARS-CoV-2 (PCR) Influenza Type A (PCR) Influenza Type B (PCR) RSV (RT-PCR) 02/26/21 02/26/21 02/26/21 15:40 17:34 17:49 WBC RBC Hgb Hct MCV MCH MCHC RDW Std Deviation RDW Coeff of Don Plt Count MPV Immature Gran % (Auto) Neut % (Auto) Lymph % (Auto) [place] % (Auto) Eos % (Auto) Baso % (Auto) Neut # (Auto) Lymph # (Auto) [place] # (Auto) Eos # (Auto) Baso # (Auto) Immature Gran # (Auto) PT INR VBG pH 7.35 L VBG pCO2 28 L VBG pO2 39 VBG HCO3 15 VBG O2 Saturation 72.0 VBG Base Excess -9.1 Barometric Pressure 720.6 Sodium Potassium Chloride Carbon Dioxide Anion Gap BUN Creatinine Est Cr Clr Drug Dosing Est GFR ( Amer) Est GFR (Non-Af Amer) BUN/Creatinine Ratio Glucose POC Glucose 360 H* Estimat Average Glucose Hemoglobin A1c Osmolality Lactate Calcium Phosphorus Magnesium Total Bilirubin Direct Bilirubin AST ALT Alkaline Phosphatase Lactate Dehydrogenase Total Creatine Kinase Troponin I C-Reactive Protein Total Protein Albumin Globulin Albumin/Globulin Ratio Lipase Beta-Hydroxybutyric Acd Procalcitonin 0.81 H TSH Urine Color Urine Appearance Urine pH Ur Specific [place] Urine Protein Urine Glucose (UA) Urine Ketones Urine Blood Urine Nitrite Urine Bilirubin Urine Urobilinogen Ur Leukocyte Esterase Urine WBC (Auto) Urine RBC (Auto) U Hyaline Cast (Auto) U Epithel Cells (Auto) Urine Bacteria (Auto) Urine Yeast COVID-19 Eval Order SARS-CoV-2 (PCR) Influenza Type A (PCR) Influenza Type B (PCR) RSV (RT-PCR) 02/26/21 02/26/21 02/26/21 17:50 17:50 17:50 WBC RBC Hgb Hct MCV MCH MCHC RDW Std Deviation RDW Coeff of Don Plt Count MPV Immature Gran % (Auto) Neut % (Auto) Lymph % (Auto) [place] % (Auto) Eos % (Auto) Baso % (Auto) Neut # (Auto) Lymph # (Auto) [place] # (Auto) Eos # (Auto) Baso # (Auto) Immature Gran # (Auto) PT INR VBG pH VBG pCO2 VBG pO2 VBG HCO3 VBG O2 Saturation VBG Base Excess Barometric Pressure Sodium Potassium Chloride Carbon Dioxide Anion Gap BUN Creatinine Est Cr Clr Drug Dosing Est GFR ( Amer) Est GFR (Non-Af Amer) BUN/Creatinine Ratio Glucose POC Glucose Estimat Average Glucose Hemoglobin A1c Osmolality Lactate Calcium Phosphorus Magnesium Total Bilirubin Direct Bilirubin AST ALT Alkaline Phosphatase Lactate Dehydrogenase Total Creatine Kinase Troponin I C-Reactive Protein Total Protein Albumin Globulin Albumin/Globulin Ratio Lipase Beta-Hydroxybutyric Acd Procalcitonin TSH Urine Color Yellow Urine Appearance Clear Urine pH 5.0 Ur Specific [place] 1.023 Urine Protein 3+ H Urine Glucose (UA) Trace H Urine Ketones 1+ H Urine Blood 3+ H Urine Nitrite Negative Urine Bilirubin Negative Urine Urobilinogen Negative Ur Leukocyte Esterase Negative Urine WBC (Auto) 1-5 Urine RBC (Auto) 0-4 U Hyaline Cast (Auto) 1-5 U Epithel Cells (Auto) 10-20 H Urine Bacteria (Auto) Negative Urine Yeast Not Reportable COVID-19 Eval Order CovFluRsv at [facility] SARS-CoV-2 (PCR) POSITIVE A* Influenza Type A (PCR) Negative Influenza Type B (PCR) Negative RSV (RT-PCR) Negative 02/26/21 02/26/21 02/26/21 18:09 21:45 22:14 WBC RBC Hgb Hct MCV MCH MCHC RDW Std Deviation RDW Coeff of Don Plt Count MPV Immature Gran % (Auto) Neut % (Auto) Lymph % (Auto) [place] % (Auto) Eos % (Auto) Baso % (Auto) Neut # (Auto) Lymph # (Auto) [place] # (Auto) Eos # (Auto) Baso # (Auto) Immature Gran # (Auto) PT INR VBG pH VBG pCO2 VBG pO2 VBG HCO3 VBG O2 Saturation VBG Base Excess Barometric Pressure Sodium Potassium Chloride Carbon Dioxide Anion Gap BUN Creatinine Est Cr Clr Drug Dosing Est GFR ( Amer) Est GFR (Non-Af Amer) BUN/Creatinine Ratio Glucose POC Glucose 424 H* 387 H* Estimat Average Glucose Hemoglobin A1c Osmolality Lactate 0.8 Calcium Phosphorus Magnesium Total Bilirubin Direct Bilirubin AST ALT Alkaline Phosphatase Lactate Dehydrogenase Total Creatine Kinase Troponin I C-Reactive Protein Total Protein Albumin Globulin Albumin/Globulin Ratio Lipase Beta-Hydroxybutyric Acd Procalcitonin TSH Urine Color Urine Appearance Urine pH Ur Specific [place] Urine Protein Urine Glucose (UA) Urine Ketones Urine Blood Urine Nitrite Urine Bilirubin Urine Urobilinogen Ur Leukocyte Esterase Urine WBC (Auto) Urine RBC (Auto) U Hyaline Cast (Auto) U Epithel Cells (Auto) Urine Bacteria (Auto) Urine Yeast COVID-19 Eval Order SARS-CoV-2 (PCR) Influenza Type A (PCR) Influenza Type B (PCR) RSV (RT-PCR) 02/26/21 02/27/21 02/27/21 22:15 00:05 00:05 WBC RBC Hgb Hct MCV MCH MCHC RDW Std Deviation RDW Coeff of Don Plt Count MPV Immature Gran % (Auto) Neut % (Auto) Lymph % (Auto) [place] % (Auto) Eos % (Auto) Baso % (Auto) Neut # (Auto) Lymph # (Auto) [place] # (Auto) Eos # (Auto) Baso # (Auto) Immature Gran # (Auto) PT INR VBG pH VBG pCO2 VBG pO2 VBG HCO3 VBG O2 Saturation VBG Base Excess Barometric Pressure Sodium Potassium Chloride Carbon Dioxide Anion Gap BUN Creatinine Est Cr Clr Drug Dosing Est GFR ( Amer) Est GFR (Non-Af Amer) BUN/Creatinine Ratio Glucose POC Glucose 397 H* 390 H* 377 H* Estimat Average Glucose Hemoglobin A1c Osmolality Lactate Calcium Phosphorus Magnesium Total Bilirubin Direct Bilirubin AST ALT Alkaline Phosphatase Lactate Dehydrogenase Total Creatine Kinase Troponin I C-Reactive Protein Total Protein Albumin Globulin Albumin/Globulin Ratio Lipase Beta-Hydroxybutyric Acd Procalcitonin TSH Urine Color Urine Appearance Urine pH Ur Specific [place] Urine Protein Urine Glucose (UA) Urine Ketones Urine Blood Urine Nitrite Urine Bilirubin Urine Urobilinogen Ur Leukocyte Esterase Urine WBC (Auto) Urine RBC (Auto) U Hyaline Cast (Auto) U Epithel Cells (Auto) Urine Bacteria (Auto) Urine Yeast COVID-19 Eval Order SARS-CoV-2 (PCR) Influenza Type A (PCR) Influenza Type B (PCR) RSV (RT-PCR) 02/27/21 02/27/21 02/27/21 02:03 02:07 04:02 WBC RBC Hgb Hct MCV MCH MCHC RDW Std Deviation RDW Coeff of Don Plt Count MPV Immature Gran % (Auto) Neut % (Auto) Lymph % (Auto) [place] % (Auto) Eos % (Auto) Baso % (Auto) Neut # (Auto) Lymph # (Auto) [place] # (Auto) Eos # (Auto) Baso # (Auto) Immature Gran # (Auto) PT INR VBG pH VBG pCO2 VBG pO2 VBG HCO3 VBG O2 Saturation VBG Base Excess Barometric Pressure Sodium Potassium Chloride Carbon Dioxide Anion Gap BUN Creatinine Est Cr Clr Drug Dosing Est GFR ( Amer) Est GFR (Non-Af Amer) BUN/Creatinine Ratio Glucose POC Glucose 358 H* 345 H* 256 H Estimat Average Glucose Hemoglobin A1c Osmolality Lactate Calcium Phosphorus Magnesium Total Bilirubin Direct Bilirubin AST ALT Alkaline Phosphatase Lactate Dehydrogenase Total Creatine Kinase Troponin I C-Reactive Protein Total Protein Albumin Globulin Albumin/Globulin Ratio Lipase Beta-Hydroxybutyric Acd Procalcitonin TSH Urine Color Urine Appearance Urine pH Ur Specific [place] Urine Protein Urine Glucose (UA) Urine Ketones Urine Blood Urine Nitrite Urine Bilirubin Urine Urobilinogen Ur Leukocyte Esterase Urine WBC (Auto) Urine RBC (Auto) U Hyaline Cast (Auto) U Epithel Cells (Auto) Urine Bacteria (Auto) Urine Yeast COVID-19 Eval Order SARS-CoV-2 (PCR) Influenza Type A (PCR) Influenza Type B (PCR) RSV (RT-PCR) 02/27/21 02/27/21 02/27/21 06:51 06:51 06:51 WBC 6.96 RBC 3.66 L Hgb 11.3 L Hct 32.2 L MCV 88.0 MCH 30.9 MCHC 35.1 RDW Std Deviation 41.8 RDW Coeff of Don 12.9 Plt Count 220 MPV 9.7 Immature Gran % (Auto) 0.1 Neut % (Auto) 90.6 Lymph % (Auto) 6.3 [place] % (Auto) 3.0 Eos % (Auto) 0.0 Baso % (Auto) 0.0 Neut # (Auto) 6.30 Lymph # (Auto) 0.44 L [place] # (Auto) 0.21 Eos # (Auto) 0.00 Baso # (Auto) 0.00 Immature Gran # (Auto) 0.01 PT INR VBG pH VBG pCO2 VBG pO2 VBG HCO3 VBG O2 Saturation VBG Base Excess Barometric Pressure Sodium 139 D Potassium 4.6 Chloride 114 H Carbon Dioxide 16 L Anion Gap 9.0 BUN 41 H Creatinine 1.95 H Est Cr Clr Drug Dosing 39.2 Est GFR ( Amer) 39.5 Est GFR (Non-Af Amer) 34.1 BUN/Creatinine Ratio 20.9 H Glucose 116 H POC Glucose Estimat Average Glucose 174 Hemoglobin A1c 7.7 H Osmolality Lactate Calcium 8.2 L Phosphorus Magnesium Total Bilirubin 0.4 Direct Bilirubin AST 73 H ALT 78 Alkaline Phosphatase 60 Lactate Dehydrogenase Total Creatine Kinase Troponin I C-Reactive Protein Total Protein 6.7 Albumin 2.6 L Globulin 4.1 H Albumin/Globulin Ratio 0.6 L Lipase Beta-Hydroxybutyric Acd Procalcitonin TSH Urine Color Urine Appearance Urine pH Ur Specific [place] Urine Protein Urine Glucose (UA) Urine Ketones Urine Blood Urine Nitrite Urine Bilirubin Urine Urobilinogen Ur Leukocyte Esterase Urine WBC (Auto) Urine RBC (Auto) U Hyaline Cast (Auto) U Epithel Cells (Auto) Urine Bacteria (Auto) Urine Yeast COVID-19 Eval Order SARS-CoV-2 (PCR) Influenza Type A (PCR) Influenza Type B (PCR) RSV (RT-PCR) 02/27/21 02/27/21 02/27/21 07:35 07:36 11:14 WBC RBC Hgb Hct MCV MCH MCHC RDW Std Deviation RDW Coeff of Don Plt Count MPV Immature Gran % (Auto) Neut % (Auto) Lymph % (Auto) [place] % (Auto) Eos % (Auto) Baso % (Auto) Neut # (Auto) Lymph # (Auto) [place] # (Auto) Eos # (Auto) Baso # (Auto) Immature Gran # (Auto) PT INR VBG pH VBG pCO2 VBG pO2 VBG HCO3 VBG O2 Saturation VBG Base Excess Barometric Pressure Sodium Potassium Chloride Carbon Dioxide Anion Gap BUN Creatinine Est Cr Clr Drug Dosing Est GFR ( Amer) Est GFR (Non-Af Amer) BUN/Creatinine Ratio Glucose POC Glucose 71 69 L* 106 H Estimat Average Glucose Hemoglobin A1c Osmolality Lactate Calcium Phosphorus Magnesium Total Bilirubin Direct Bilirubin AST ALT Alkaline Phosphatase Lactate Dehydrogenase Total Creatine Kinase Troponin I C-Reactive Protein Total Protein Albumin Globulin Albumin/Globulin Ratio Lipase Beta-Hydroxybutyric Acd Procalcitonin TSH Urine Color Urine Appearance Urine pH Ur Specific [place] Urine Protein Urine Glucose (UA) Urine Ketones Urine Blood Urine Nitrite Urine Bilirubin Urine Urobilinogen Ur Leukocyte Esterase Urine WBC (Auto) Urine RBC (Auto) U Hyaline Cast (Auto) U Epithel Cells (Auto) Urine Bacteria (Auto) Urine Yeast COVID-19 Eval Order SARS-CoV-2 (PCR) Influenza Type A (PCR) Influenza Type B (PCR) RSV (RT-PCR) Medications Administered Current Inpatient Medications Acetaminophen (Acetaminophen 325 Mg Tab) 650 mg PO Q4H PRN PRN Reason: Pain or Fever Stop: 03/28/21 22:12 Carvedilol (Carvedilol 6.25 Mg Tab) 6.25 mg PO BID ARABELLA Stop: 03/28/21 22:12 Last Admin: 02/27/21 08:26 Dose: 6.25 mg Documented by: Dextrose (Dextrose 50% 50 Ml Syringe) 25 - 50 ml IV UD PRN; Protocol PRN Reason: Hypoglycemia Protocol Stop: 03/28/21 23:14 Ezetimibe (Ezetimibe 10 Mg Tablet) 10 mg PO DAILY ARABELLA Stop: 03/29/21 08:59 Last Admin: 02/27/21 08:27 Dose: 10 mg Documented by: Glucagon (Glucagon For Inj 1 Mg Vial) 1 mg SQ UD PRN; Protocol PRN Reason: Hypoglycemia Protocol Stop: 03/28/21 23:14 Glucose (Glucose 40% Gel 15 Gm Tube) 15 - 30 gm PO UD PRN; Protocol PRN Reason: Hypoglycemia Protocol Stop: 03/28/21 23:14 Glucose (Glucose 10 Tabs/Tube) 4 - 8 tabs PO UD PRN; Protocol PRN Reason: Hypoglycemia Protocol Stop: 03/28/21 23:14 Dexamethasone 6 mg/ Syringe 1.5 mls @ 1 mls/min IV QAM ARABELLA Stop: 03/06/21 08:59 Last Admin: 02/27/21 08:26 Dose: 1 mls/min Documented by: Insulin Aspart (Insulin Aspart 100 Units/Ml 3 Ml Pen) 0 units SC ACHS ARABELLA Stop: 03/29/21 07:29 Last Admin: 02/27/21 12:20 Dose: 2 units Documented by: Insulin Glargine (Insulin Glargine Solostar 100 Units/Ml 3 Ml Pen) 30 units SC HS [facility] Stop: 03/29/21 20:59 Lamotrigine (Lamotrigine 100 Mg Tab) 100 mg PO BID ARABELLA Stop: 03/28/21 22:12 Last Admin: 02/27/21 08:27 Dose: 100 mg Documented by: Miscellaneous (Carbohydrates For Hypoglycemia ) 15 - 30 gm PO UD PRN PRN Reason: Hypoglycemia Treatment Stop: 03/28/21 23:14 Miscellaneous Information (Pharmacy Glycemic Mgmt Consult) 1 ea N/A UD PRN PRN Reason: Consult Stop: 03/28/21 22:55 Pravastatin Sodium (Pravastatin Sod 20 Mg Tab) 20 mg PO DAILY [facility] Stop: 03/29/21 08:59 Last Admin: 02/27/21 08:28 Dose: 20 mg Documented by: Pregabalin (Pregabalin 100 Mg Cap) 100 mg PO BID ARABELLA Stop: 03/28/21 22:12 Last Admin: 02/27/21 08:32 Dose: 100 mg Documented by: Primidone (Primidone 50 Mg Tab) 50 mg PO HS ARABELLA Stop: 02/27/21 21:01 Last Admin: 02/26/21 23:33 Dose: 50 mg Documented by: Primidone (Primidone 50 Mg Tab) 100 mg PO HS [facility] Stop: 03/30/21 20:59 Rivaroxaban (Rivaroxaban 20 Mg Tab) 20 mg PO DAILY ARABELLA Stop: 03/29/21 08:59 Last Admin: 02/27/21 08:27 Dose: 20 mg Documented by: Sodium Bicarbonate (Sodium Bicarbonate 650 Mg Tab) 650 mg PO BID [facility] Stop: 03/28/21 22:12 Last Admin: 02/27/21 08:28 Dose: 650 mg Documented by: PG Care Time/CCT Total # of Minutes Spent Total Time Spent with Patient: Total time spent is greater than 50% in coordination of care (as documented) at patient's floor/unit and/or counseling patient: Coding Level of Care Code 31927 Subseq Hosp Care Lvl 3 Diagnoses Pneumonia due to COVID-19 virus U07.1; J12.82 Hypoxia R09.02 Atrial flutter I48.3 Atrial flutter type: typical Chronic kidney disease, stage III (moderate) N18.30 Recurrent falls R29.6 Type 2 diabetes mellitus E11.65; Z79.4 Diabetes mellitus complication status: with hyperglycemia Diabetes mellitus chcf insulin use: with manager financial systems use Essential hypertension I10 Obstructive sleep apnea G47.33 Coronary artery disease I25.10 Chronic congestive heart failure I50.32 Heart failure type: diastolic Peripheral neuropathy G62.9 Tremor R25.1 BPH (benign prostatic hyperplasia) N40.0 Normocytic anemia D64.9 DVT prophylaxis Z29.9 (1) Type 2 diabetes mellitus Diabetes mellitus complication status: with hyperglycemia Diabetes mellitus manager financial systems insulin use: with manager financial systems use Qualified Code(s): E11.65 - Type 2 diabetes mellitus with hyperglycemia; Z79.4 - long-term (current) use of insulin (2) Chronic congestive heart failure Heart failure type: diastolic Qualified Code(s): I50.32 - Chronic diastolic (congestive) heart failure (3) Atrial flutter Atrial flutter type: typical Qualified Code(s): I48.3 - Typical atrial flutter
[2021-02-27] MEDS ORDERED: AZITHROMYCIN 500 MG in DEXTROSE 5% 250 ML IV STA (19:40)
[2021-02-27] MEDS: PRIMIDONE 50 MG TAB PO SCH (21:09)
[2021-02-27] MEDS: cefTRIAXone SODIUM 2,000 MG in DEXTROSE 5% 50 ML IV SCH (21:10)
[2021-02-27] MEDS: DOXYCYCLINE HYCLATE 100 MG in DEXTROSE 5% 100 ML IV SCH (21:10)
[2021-02-28] MEDS: ACETAMINOPHEN 325 MG TAB PO PRN ×2 (07:22→20:27)
[2021-02-28 07:37] LABS: Hematocrit (blood only) 29.5 % (42-52); Hemoglobin 10.5 g/dL (14.0-18.0); Immature Granulocytes # (auto) 0.01 K/uL (0.00-0.02); Immature Granulocytes % (auto) 0.2 %; Lymphocytes # (auto) 0.35 K/uL (1.2-3.4); Lymphocytes % (auto) 7.1 %; Mean Corpuscular Hemoglobin 31.3 pg (25-34); Mean Corpuscular Hgb Conc 35.6 g/dL (32-36); Mean Corpuscular Volume 88.1 fL (80-100); Mean Platelet Volume 9.6 fL (7.4-10.4); Monocytes # (auto) 0.18 K/uL (0.11-0.59); Monocytes % (auto) 3.6 %; Neutrophils # (auto) 4.41 K/uL (1.4-6.5); Neutrophils % (auto) 89.1 %; Platelet Count 202 K/uL (130-400); RDW Coefficient of Variation 13.1 % (11.5-14.5); RDW Standard Deviation 42.7 fL (36.4-46.3); Red Blood Count 3.35 M/uL (4.7-6.1); White Blood Count 4.95 K/uL (4.8-10.8)
[2021-02-28 07:53] LABS: BUN Creatinine Ratio 22.6 (10-20); Calcium 7.6 mg/dl (8.5-10.1); Est GFR (Non-African American) 37.1; Potassium 4.3 mmol/L (3.5-5.1)
[2021-02-28] MEDS: INSULIN ASPART 100 UNITS/ML 3 ML PEN SC SCH ×5 (08:47→23:57)
[2021-02-28] MEDS: EZETIMIBE 10 MG TABLET PO SCH (08:48)
[2021-02-28] MEDS: RIVAROXABAN 20 MG TAB PO SCH (08:48)
[2021-02-28] MEDS: dexAMETHasone 6 MG in SYRINGE 0 ML IV SCH (08:48)
[2021-02-28] MEDS: SODIUM BICARBONATE 650 MG TAB PO SCH ×2 (08:48→20:28)
[2021-02-28] MEDS: lamoTRIgine 100 MG TAB PO SCH ×2 (08:48→20:28)
[2021-02-28] MEDS: PRAVASTATIN SOD 20 MG TAB PO SCH (08:48)
[2021-02-28] MEDS: carvediloL 6.25 MG TAB PO SCH ×2 (08:49→20:28)
[2021-02-28] MEDS: PREGABALIN 100 MG CAP PO SCH ×2 (08:53→20:28)
[2021-02-28] MEDS: DOXYCYCLINE HYCLATE 100 MG in DEXTROSE 5% 100 ML IV SCH ×2 (08:53→20:16)
--- NOTE | 2021-02-28 10:54 | Hospitalist Progress Note ---
Date of Service February 28, 2021 Assessment & Plan (1) Pneumonia due to COVID-19 virus: Covid isolation precautions Self prone as able Continue dexamethasone 6 mg IV daily, day 3 will continue ISB, add flutter valve continue Ceftriaxone and Doxycycline, day 2 had a fever last night, none since procalcitonin is > 1 stable on low flow nasal canula today, weaned down to 2L from 3L (2) Hypoxia: Without respiratory distress Aim O2 sats > 90% stable on 2L this morning, slowly improving (3) Atrial flutter: New on last admission at [facility] TSH WNL continue carvedilol 6.25mg BID, HR is in the 60's Anticoagulation with Xarelto (4) Chronic kidney disease, stage III (moderate): Per prior notes from [facility] baseline Cr 1.85 Will continue sodium bicarbonate 650mg PO BID Will hold V[place] as potassium currently normal Cr is 1.81, making urine, K stable, follow daily for now (5) Recurrent falls: Very unclear history regarding this. Patient will need PT/OT, anticipate he will need rehabilitation. he is more light headed today, was OOB in chair when he felt symptoms will need orthostatic vitals once he can do therapy (6) Type 2 diabetes mellitus: HbA1C - 7.7% Novolog SS, sugars better this morning Lantus 30 units HS monitor for hypoglycemia (7) Essential hypertension: He is on many more antihypertensives that listed on [facility] notes. Possible reason for his continued dizziness at home. Will hold his hydralazine and spironolactone BP stable on Coreg 6.25mg BID 130-140's systolic, no hypotensive readings (8) Obstructive sleep apnea: Unclear history of this but he denies being on CPAP at home (9) Coronary artery disease: Patient is only on Xarelto per med list from his . Coreg (10) Chronic congestive heart failure: No acute exacerbation suspected. Taking spironolactone at home but this is not mentioned on [facility] notes therefore unclear whether he was getting it there. Will hold for now and monitor fluid balance. he exmines euvolemic (11) Peripheral neuropathy: Continue Lyrica 100mg PO BID (12) Tremor: The patient reports he has Parkinson's but cannot list any medications for this. I suspect he is being treated for an essential tremor with primidone. Notes requested from his neurologist. (13) BPH (benign prostatic hyperplasia): Possible diagnosis. Mentioned on [facility] notes. Patient denies being on tamsulosin or any urinary problems. Bladder scan PVR (14) Normocytic anemia: Stable at baseline (15) DVT prophylaxis: Continue Xarelto 20mg PO daily Admission and Anticipated Discharge Date Admission Date: February 26, 2021 Subjective patient had some more light headedness this morning, tried sitting in chair and made it through breakfast but they had to lay down he is breathing well, cough decreased, still making sputum but less had a fever last night of 39.1, continue on Ceftriaxone and doxycycline eating well, making urine reviewed labs, Cr stable at 1.81, K is normal, WBC is 4.9, Hb 10 CO2 coming up to 20 from 16 no chest pain, no GI symptoms, + light headed, no vertigo Review of Systems Review of Systems: All systems reviewed & are unremarkable except as noted in Subjective Physical Exam Constitutional: well developed, well nourished and + ill appearing; no acute distress Neck: trachea midline, no thyromegaly Respiratory: normal respiratory effort, lungs clear to auscultation + cough; no labored breathing and not tachypneic Cardiovascular: Rate/Rhythm: regular rate and + irregularly irregular Heart Sounds: normal S1 and normal S2; no murmur Extremities: normal capillary refill; no edema Gastrointestinal (Abdomen): normal bowel sounds, soft, nontender, no hepatosplenomegaly Musculoskeletal: no cyanosis or clubbing, extremities motor strength 5/5 Skin: no rashes, warm and dry Neurologic: patellar DTR's 2+ bilat, sensation intact and PERRL, EOMI, accommodation nl, no face palsy, no dysarthria Psychiatric: A+Ox3, euthymic affect Lymphatic: no cervical or axillary lymphadenopathy Results & Data Results & Data ([facility]) Vital Signs (Past 12 Hours) Vital Signs Temp Pulse Pulse Resp BP Pulse Ox 02/28/21 08:36 36.9 C 02/28/21 07:42 39.4 C H 74 20 139/71 91 02/28/21 07:18 76 02/28/21 03:14 36.5 C 64 20 149/73 H 92 02/27/21 23:00 38.0 C H 69 22 111/77 94 Laboratory Results Laboratory Results - last 24 hr 02/27/21 02/27/21 02/27/21 11:14 16:12 20:40 WBC RBC Hgb Hct MCV MCH MCHC RDW Std Deviation RDW Coeff of Don Plt Count MPV Immature Gran % (Auto) Neut % (Auto) Lymph % (Auto) Winkler % (Auto) Eos % (Auto) Baso % (Auto) Neut # (Auto) Lymph # (Auto) Winkler # (Auto) Eos # (Auto) Baso # (Auto) Immature Gran # (Auto) Sodium Potassium Chloride Carbon Dioxide Anion Gap BUN Creatinine Est Cr Clr Drug Dosing Est GFR ( Amer) Est GFR (Non-Af Amer) BUN/Creatinine Ratio Glucose POC Glucose 106 H 154 H 154 H Calcium Procalcitonin 02/28/21 02/28/21 02/28/21 07:10 07:10 07:10 WBC 4.95 RBC 3.35 L Hgb 10.5 L Hct 29.5 L MCV 88.1 MCH 31.3 MCHC 35.6 RDW Std Deviation 42.7 RDW Coeff of Don 13.1 Plt Count 202 MPV 9.6 Immature Gran % (Auto) 0.2 Neut % (Auto) 89.1 Lymph % (Auto) 7.1 Winkler % (Auto) 3.6 Eos % (Auto) 0.0 Baso % (Auto) 0.0 Neut # (Auto) 4.41 Lymph # (Auto) 0.35 L Winkler # (Auto) 0.18 Eos # (Auto) 0.00 Baso # (Auto) 0.00 Immature Gran # (Auto) 0.01 Sodium 137 Potassium 4.3 Chloride 112 H Carbon Dioxide 20 L Anion Gap 5.0 BUN 41 H Creatinine 1.82 H Est Cr Clr Drug Dosing 42.0 Est GFR ( Amer) 43.0 Est GFR (Non-Af Amer) 37.1 BUN/Creatinine Ratio 22.6 H Glucose 114 H POC Glucose Calcium 7.6 L Procalcitonin 1.52 H 02/28/21 07:34 WBC RBC Hgb Hct MCV MCH MCHC RDW Std Deviation RDW Coeff of Don Plt Count MPV Immature Gran % (Auto) Neut % (Auto) Lymph % (Auto) Winkler % (Auto) Eos % (Auto) Baso % (Auto) Neut # (Auto) Lymph # (Auto) Winkler # (Auto) Eos # (Auto) Baso # (Auto) Immature Gran # (Auto) Sodium Potassium Chloride Carbon Dioxide Anion Gap BUN Creatinine Est Cr Clr Drug Dosing Est GFR ( Amer) Est GFR (Non-Af Amer) BUN/Creatinine Ratio Glucose POC Glucose 115 H Calcium Procalcitonin Medications Administered Current Inpatient Medications Acetaminophen (Acetaminophen 325 Mg Tab) 650 mg PO Q4H PRN PRN Reason: Pain or Fever Stop: 03/28/21 22:12 Last Admin: 02/28/21 07:22 Dose: 650 mg Documented by: Carvedilol (Carvedilol 6.25 Mg Tab) 6.25 mg PO BID ARABELLA Stop: 03/28/21 22:12 Last Admin: 02/28/21 08:49 Dose: 6.25 mg Documented by: Dextrose (Dextrose 50% 50 Ml Syringe) 25 - 50 ml IV UD PRN; Protocol PRN Reason: Hypoglycemia Protocol Stop: 03/28/21 23:14 Ezetimibe (Ezetimibe 10 Mg Tablet) 10 mg PO DAILY ARABELLA Stop: 03/29/21 08:59 Last Admin: 02/28/21 08:48 Dose: 10 mg Documented by: Glucagon (Glucagon For Inj 1 Mg Vial) 1 mg SQ UD PRN; Protocol PRN Reason: Hypoglycemia Protocol Stop: 03/28/21 23:14 Glucose (Glucose 40% Gel 15 Gm Tube) 15 - 30 gm PO UD PRN; Protocol PRN Reason: Hypoglycemia Protocol Stop: 03/28/21 23:14 Glucose (Glucose 10 Tabs/Tube) 4 - 8 tabs PO UD PRN; Protocol PRN Reason: Hypoglycemia Protocol Stop: 03/28/21 23:14 Dexamethasone 6 mg/ Syringe 1.5 mls @ 1 mls/min IV QAM [facility] Stop: 03/06/21 08:59 Last Admin: 02/28/21 08:48 Dose: 1 mls/min Documented by: Ceftriaxone Sodium 2,000 mg/ (Dextrose) 70 mls @ 100 mls/hr IV Q24H [facility]; Protocol Stop: 03/06/21 20:14 Last Infusion: 02/27/21 21:52 Dose: Infused Documented by: Doxycycline Hyclate 100 mg/ (Dextrose) 110 mls @ 50 mls/hr IV Q12H [facility] Stop: 03/06/21 20:14 Last Admin: 02/28/21 08:53 Dose: 50 mls/hr Documented by: Insulin Aspart (Insulin Aspart 100 Units/Ml 3 Ml Pen) 0 units SC ACHS [facility] Stop: 03/29/21 07:29 Last Admin: 02/28/21 08:47 Dose: 7 units Documented by: Insulin Glargine (Insulin Glargine Solostar 100 Units/Ml 3 Ml Pen) 30 units SC HS [facility] Stop: 03/29/21 20:59 Last Admin: 02/27/21 21:11 Dose: 30 units Documented by: Lamotrigine (Lamotrigine 100 Mg Tab) 100 mg PO BID ARABELLA Stop: 03/28/21 22:12 Last Admin: 02/28/21 08:48 Dose: 100 mg Documented by: Miscellaneous (Carbohydrates For Hypoglycemia ) 15 - 30 gm PO UD PRN PRN Reason: Hypoglycemia Treatment Stop: 03/28/21 23:14 Miscellaneous Information (Pharmacy Glycemic Mgmt Consult) 1 ea N/A UD PRN PRN Reason: Consult Stop: 03/28/21 22:55 Pravastatin Sodium (Pravastatin Sod 20 Mg Tab) 20 mg PO DAILY [facility] Stop: 03/29/21 08:59 Last Admin: 02/28/21 08:48 Dose: 20 mg Documented by: Pregabalin (Pregabalin 100 Mg Cap) 100 mg PO BID [facility] Stop: 03/28/21 22:12 Last Admin: 02/28/21 08:53 Dose: 100 mg Documented by: Primidone (Primidone 50 Mg Tab) 100 mg PO HS [facility] Stop: 03/30/21 20:59 Rivaroxaban (Rivaroxaban 20 Mg Tab) 20 mg PO DAILY [facility] Stop: 03/29/21 08:59 Last Admin: 02/28/21 08:48 Dose: 20 mg Documented by: Sodium Bicarbonate (Sodium Bicarbonate 650 Mg Tab) 650 mg PO BID [facility] Stop: 03/28/21 22:12 Last Admin: 02/28/21 08:48 Dose: 650 mg Documented by: PG Care Time/CCT Total # of Minutes Spent Total Time Spent with Patient: Total time spent is greater than 50% in coordination of care (as documented) at patient's floor/unit and/or counseling patient: Coding Level of Care Code 16418 Subseq Hosp Care Lvl 3 Diagnoses Pneumonia due to COVID-19 virus U07.1; J12.82 Hypoxia R09.02 Atrial flutter I48.3 Atrial flutter type: typical Chronic kidney disease, stage III (moderate) N18.30 Recurrent falls R29.6 Type 2 diabetes mellitus E11.65; Z79.4 Diabetes mellitus supervisor intermediates insulin use: with prison use Diabetes mellitus complication status: with hyperglycemia Essential hypertension I10 Obstructive sleep apnea G47.33 Coronary artery disease I25.10 Chronic congestive heart failure I50.32 Heart failure type: diastolic Peripheral neuropathy G62.9 Tremor R25.1 BPH (benign prostatic hyperplasia) N40.0 Normocytic anemia D64.9 DVT prophylaxis Z29.9 (1) Atrial flutter Atrial flutter type: typical Qualified Code(s): I48.3 - Typical atrial flutter (2) Type 2 diabetes mellitus Diabetes mellitus prison insulin use: with supervisor intermediates use Diabetes mellitus complication status: with hyperglycemia Qualified Code(s): E11.65 - Type 2 diabetes mellitus with hyperglycemia; Z79.4 - custodial (current) use of insulin (3) Chronic congestive heart failure Heart failure type: diastolic Qualified Code(s): I50.32 - Chronic diastolic (congestive) heart failure
--- NOTE | 2021-02-28 11:38 | Pharmacy Report ---
Pharmacy Glycemic Short Note 2 - Date of Service February 28, 2021 - Glycemic Short BSG Results (Last 24 hours): 02/27/21 02/27/21 02/28/21 16:12 20:40 07:10 Glucose 114 H POC Glucose 154 H 154 H 02/28/21 02/28/21 07:34 11:02 Glucose POC Glucose 115 H 276 H OUTPATIENT ANTIDIABETIC REGIMEN: * Humalog 18 units with breakfast + 4 units with lunch + 8 units with dinner * Unclear if he takes the following meds: glipizide, victoza, metformin * Discussed with Dr Eckert 02/26: Pt and are poor historians with outpatient regimen - are able to verbalize that he does indeed take the humalog as listed above but they aren't sure if he is taking the metformin, glipizide, or victoza. * A1c = 7.7% on 02/27/21 ASSESSMENT: 02/28/21 * Blood sugars at goal over past 24 hours except pre lunch sugar today is 276mg/dl - will tighten CR * Patient may need NPH with IV Dexamethasone if blood sugar remains elevated today, will consider starting tomorrow * Fasting Blood sugar 114mg/dl - no change in Lantus 02/27/21 * 70yo T2DM male admitted for COVID-19 PNA. Pt with severe hyperglycemia secondary to outpatient dexamethasone (for COVID) plus illness/stress. * Outpatient regimen is unclear - did not have an A1c on 02/26/21 therefore, started with weight based SQ basal bolus insulin dosing for steroid induced hyperglycemia. * Pt received Lantus 35 units SQ (0.4 units/kg) x 1 + Q4hrs NovoLog + IV insulin boluses (10 units at 2017 + 6 units at 2300) * Pt with LOW BSG this AM at 69 mg/dl. Most likely due to 13 + 28 + 12 units of NovoLog given Q4hrs overnight. * Will loosen insulin regimen today to prevent low tomorrow. PLAN FOR INPATIENT GLYCEMIC CONTROL: * Hold outpatient oral diabetes medications * Basal insulin * Lantus 30 units SQ HS * Considered starting daily NPH for dexamethasone tomorrow morning * Bolus insulin: * NovoLog per scale ACHS or Q6hrs while NPO * Goal Range: Low 110 mg/dL - High 140 mg/dL * Correction Factor: 25 mg/dL/unit * TIGHTEN: Nutritional / Prandial insulin per carb ratio of 1 unit per 6 grams CHO consumed PLAN FOR DISCHARGE: * TBD- A1c is in goal range for age/co-morbidities; however need to work with patient and educator to determine exact outpatient regimen.
[2021-02-28] MEDS ORDERED: INSULIN GLARGINE SOLOSTAR 100 UNITS/ML 3 ML PEN SC SCH (18:00)
[2021-02-28] MEDS: cefTRIAXone SODIUM 2,000 MG in DEXTROSE 5% 50 ML IV SCH (20:17)
[2021-02-28] MEDS: PRIMIDONE 50 MG TAB PO SCH (20:28)
[2021-02-28] MEDS ORDERED: COUGH DROP (SUGAR FREE) LOZ 24 LOZ/1 BOX BUCCAL PRN (22:29)
[2021-02-28] MEDS ORDERED: COUGH DROP (SUGAR FREE) LOZ 24 LOZ/1 BOX BUCCAL ONE (22:34)
[2021-03-01] MEDS: INSULIN ASPART 100 UNITS/ML 3 ML PEN SC SCH ×5 (03:57→20:43)
[2021-03-01] MEDS ORDERED: POLYETHYLENE (MIRALAX) 17 GM PACK PO PRN (07:24)
[2021-03-01 07:48] LABS: Hematocrit (blood only) 31.3 % (42-52); Hemoglobin 11.1 g/dL (14.0-18.0); Mean Corpuscular Hemoglobin 31.2 pg (25-34); Mean Corpuscular Hgb Conc 35.5 g/dL (32-36); Mean Corpuscular Volume 87.9 fL (80-100); Mean Platelet Volume 9.8 fL (7.4-10.4); Platelet Count 218 K/uL (130-400); RDW Coefficient of Variation 13.1 % (11.5-14.5); RDW Standard Deviation 42.4 fL (36.4-46.3); Red Blood Count 3.56 M/uL (4.7-6.1); White Blood Count 5.31 K/uL (4.8-10.8)
[2021-03-01 08:03] LABS: BUN Creatinine Ratio 21.8 (10-20); Calcium 7.8 mg/dl (8.5-10.1); Est GFR (African American) 44.1; Est GFR (Non-African American) 38.1; Potassium 4.2 mmol/L (3.5-5.1)
[2021-03-01] MEDS: DOXYCYCLINE HYCLATE 100 MG in DEXTROSE 5% 100 ML IV SCH ×2 (08:11→20:25)
[2021-03-01] MEDS: carvediloL 6.25 MG TAB PO SCH ×2 (08:19→20:42)
[2021-03-01] MEDS: SODIUM BICARBONATE 650 MG TAB PO SCH ×2 (08:19→20:42)
[2021-03-01] MEDS: lamoTRIgine 100 MG TAB PO SCH ×2 (08:19→20:42)
[2021-03-01] MEDS: dexAMETHasone 6 MG in SYRINGE 0 ML IV SCH (08:19)
[2021-03-01] MEDS: EZETIMIBE 10 MG TABLET PO SCH (08:20)
[2021-03-01] MEDS: PRAVASTATIN SOD 20 MG TAB PO SCH (08:20)
[2021-03-01] MEDS: RIVAROXABAN 20 MG TAB PO SCH (08:20)
[2021-03-01] MEDS: PREGABALIN 100 MG CAP PO SCH ×2 (08:23→20:47)
[2021-03-01] MEDS ORDERED: INSULIN HUMAN NPH SC SCH (09:00)
--- NOTE | 2021-03-01 10:20 | XRay Report ---
XR chest 1V portable HISTORY: 70 years-old Male hypoxemia, COVID acute hypoxia COMPARISON: Chest radiograph 02/26/2021 TECHNIQUE: Portable AP view of the chest FINDINGS: Cardiac silhouette is enlarged. Progressively worsened bilateral mid and lower lung zone predominant airspace opacities. No pneumothorax or pleural effusion. IMPRESSION: Progressively worsened bilateral airspace opacities suggestive of multifocal pneumonia. ACT 112: Negative or not required by law. The above report was generated using voice recognition software. It may contain grammatical, syntax o r spelling errors. Electronically signed by: Izaiah Brand M.D. 03/01/2021 10:19 AM
--- NOTE | 2021-03-01 12:35 | Hospitalist Progress Note ---
Date of Service March 01, 2021 Assessment & Plan (1) Pneumonia due to COVID-19 virus: Covid isolation precautions Self prone as able Continue dexamethasone 6 mg IV daily, day 4 will continue ISB, add flutter valve (helping to mobilize sputum) continue Ceftriaxone and Doxycycline, day 3 no further fevers procalcitonin is > 1 stable on low flow nasal canula today, 4L (2) Hypoxia: Without respiratory distress Aim O2 sats > 90% stable on 4L today did desaturate this morning requiring 8L but resolved with flutter valve and coughing up sputum (3) Atrial flutter: [facility] W[facility] continue carvedilol 6.25mg BID, HR is in the 60's Anticoagulation with Xarelto (4) Chronic kidney disease, stage III (moderate): [facility] from [facility] baseline Cr 1.85 Will continue sodium bicarbonate 650mg PO BID, HCO3 is 21 Will hold [place] as potassium currently normal Cr is 1.78, making urine, K stable, follow daily for now (5) Recurrent falls: Very unclear history regarding this. Patient will need PT/OT, anticipate he will need rehabilitation. get PT/OT, orthostatic vitals (6) Type 2 diabetes mellitus: HbA1C - 7.7% Novolog SS, sugars better this morning Lantus 30 units HS monitor for hypoglycemia (7) Essential hypertension: He is on many more antihypertensives that listed on [facility] notes. Possible reason for his continued dizziness at home. Will hold his hydralazine and spironolactone BP stable on Coreg 6.25mg BID 130-140's systolic, no hypotensive readings (8) Obstructive sleep apnea: Unclear history of this but he denies being on CPAP at home (9) Coronary artery disease: Patient is only on Xarelto per med list from his . Coreg (10) Chronic congestive heart failure: No acute exacerbation suspected. Taking spironolactone at home but this is not mentioned on [facility] therefore unclear whether he was getting it there. Will hold for now and monitor fluid balance. he examines euvolemic (11) Peripheral neuropathy: Continue Lyrica 100mg PO BID (12) Tremor: The patient reports he has Parkinson's but cannot list any medications for this. suspect he is being treated for an essential tremor with primidone. (13) BPH (benign prostatic hyperplasia): Possible diagnosis. Mentioned on [facility] [place] notes. Patient denies being on tamsulosin or any urinary problems. Bladder scan PVR (14) Normocytic anemia: Stable at baseline (15) DVT prophylaxis: Continue Xarelto 20mg PO daily Admission and Anticipated Discharge Date Admission Date: February 26, 2021 Subjective patient doing well this afternoon, sitting up in bed, finished his lunch he was requiring 8L this morning after desaturating on 4L to 85% however, he was able to cough up a bunch of sputum after using flutter valve, back down to 4L now breathing comfortably, no fever, does have chills CXR today with some increase in the bilateral infiltrates WBC is 5k, Hb 11, plts 218k Cr 1.78, K 4.2 stable on monitor, afib with rates in 50-60's Review of Systems Review of Systems: All systems reviewed & are unremarkable except as noted in Subjective Constitutional: + chills and + weakness; no fever and no fatigue Respiratory: + cough, + chest congestion, + dyspnea on exertion and + sputum production; no hemoptysis, no pain with cough and no wheezing Cardiovascular: + lightheadedness; no chest pain Gastrointestinal: no abdominal pain, no nausea, no vomiting, no constipation and no diarrhea/loose stools Physical Exam Constitutional: well developed and well nourished; no acute distress Neck: trachea midline, no thyromegaly Respiratory: normal respiratory effort and + cough; no labored breathing and not tachypneic Auscultation: + rhonchi (bilaterally) Cardiovascular: Rate/Rhythm: regular rate and + irregularly irregular Heart Sounds: normal S1 and normal S2; no murmur Extremities: normal capillary r efill; no edema Gastrointestinal (Abdomen): normal bowel sounds, soft, nontender, no hepatosplenomegaly Musculoskeletal: no cyanosis or clubbing, extremities motor strength 5/5 Skin: no rashes, warm and dry Neurologic: patellar DTR's 2+ bilat, sensation intact and PERRL, EOMI, ac commodation nl, no face palsy, no dysarthria Psychiatric: A+Ox3, euthymic affect Lymphatic: no cervical or axillary lymphadenopathy Results & Data Results & Data ([facility]) Vital Signs (Past 12 Hours) Vital Signs Temp Pulse Pulse Resp BP Pulse Ox 03/01/21 11:18 94 03/01/21 11:08 37.4 C 62 20 137/73 92 03/01/21 09:42 98 03/01/21 08:46 55 L 03/01/21 08:41 85 L 03/01/21 08:25 68 03/01/21 07:37 36.8 C 56 L 18 138/76 85 L 03/01/21 03:29 60 22 95 03/01/21 02:40 36.6 C 68 22 132/70 95 Laboratory Results Laboratory Results - last 24 hr 02/28/21 02/28/21 02/28/21 16:49 16:50 20:17 WBC RBC Hgb Hct MCV MCH MCHC RDW Std Deviation RDW Coeff of Don Plt Count MPV Sodium Potassium Chloride Carbon Dioxide Anion Gap BUN Creatinine Est Cr Clr Drug Dosing Est GFR ( Amer) Est GFR (Non-Af Amer) BUN/Creatinine Ratio Glucose POC Glucose 354 H* 321 H* 288 H Calcium 02/28/21 03/01/21 03/01/21 23:55 03:54 07:22 WBC 5.31 RBC 3.56 L Hgb 11.1 L Hct 31.3 L MCV 87.9 MCH 31.2 MCHC 35.5 RDW Std Deviation 42.4 RDW Coeff of Don 13.1 Plt Count 218 MPV 9.8 Sodium Potassium Chloride Carbon Dioxide Anion Gap BUN Creatinine Est Cr Clr Drug Dosing Est GFR ( Amer) Est GFR (Non-Af Amer) BUN/Creatinine Ratio Glucose POC Glucose 173 H 110 H Calcium 03/01/21 03/01/21 03/01/21 07:22 07:45 11:07 WBC RBC Hgb Hct MCV MCH MCHC RDW Std Deviation RDW Coeff of Don Plt Count MPV Sodium 139 Potassium 4.2 Chloride 112 H Carbon Dioxide 21 Anion Gap 6.0 BUN 39 H Creatinine 1.78 H Est Cr Clr Drug Dosing 43.0 Est GFR ( Amer) 44.1 Est GFR (Non-Af Amer) 38.1 BUN/Creatinine Ratio 21.8 H Glucose 114 H POC Glucose 115 H 290 H Calcium 7.8 L Diagnostic Findings XR chest 1V portable HISTORY: 70 years-old Male hypoxemia, COVID acute hypoxia COMPARISON: Chest radiograph 02/26/2021 TECHNIQUE: Portable AP view of the chest FINDINGS: Cardiac silhouette is enlarged. Progressively worsened bilateral mid and lower lung zone predominant airspace opacities. No pneumothorax or pleural effusion. IMPRESSION: Progressively worsened bilateral airspace opacities suggestive of multifocal pneumonia. Medications Administered Current Inpatient Medications Acetaminophen (Acetaminophen 325 Mg Tab) 650 mg PO Q4H PRN PRN Reason: Pain or Fever Stop: 03/28/21 22:12 Last Admin: 02/28/21 20:27 Dose: 650 mg Documented by: Carvedilol (Carvedilol 6.25 Mg Tab) 6.25 mg PO BID ARABELLA Stop: 03/28/21 22:12 Last Admin: 03/01/21 08:19 Dose: 6.25 mg Documented by: Dextrose (Dextrose 50% 50 Ml Syringe) 25 - 50 ml IV UD PRN; Protocol PRN Reason: Hypoglycemia Protocol Stop: 03/28/21 23:14 Ezetimibe (Ezetimibe 10 Mg Tablet) 10 mg PO DAILY ARABELLA Stop: 03/29/21 08:59 Last Admin: 03/01/21 08:20 Dose: 10 mg Documented by: Glucagon (Glucagon For Inj 1 Mg Vial) 1 mg SQ UD PRN; Protocol PRN Reason: Hypoglycemia Protocol Stop: 03/28/21 23:14 Glucose (Glucose 40% Gel 15 Gm Tube) 15 - 30 gm PO UD PRN; Protocol PRN Reason: Hypoglycemia Protocol Stop: 03/28/21 23:14 Glucose (Glucose 10 Tabs/Tube) 4 - 8 tabs PO UD PRN; Protocol PRN Reason: Hypoglycemia Protocol Stop: 03/28/21 23:14 Dexamethasone 6 mg/ Syringe 1.5 mls @ 1 mls/min IV QAM ARABELLA Stop: 03/06/21 08:59 Last Admin: 03/01/21 08:19 Dose: 1 mls/min Documented by: Ceftriaxone Sodium 2,000 mg/ (Dextrose) 70 mls @ 100 mls/hr IV Q24H ARABELLA; Protocol Stop: 03/06/21 20:14 Last Infusion: 02/28/21 20:59 Dose: Infused Documented by: Doxycycline Hyclate 100 mg/ (Dextrose) 110 mls @ 50 mls/hr IV Q12H ARABELLA Stop: 03/06/21 20:14 Last Infusion: 03/01/21 11:17 Dose: Infused Documented by: Insulin Aspart (Insulin Aspart 100 Units/Ml 3 Ml Pen) 0 units SC [facility] Stop: 03/29/21 07:29 Last Admin: 03/01/21 12:04 Dose: 18 units Documented by: Insulin Glargine (Insulin Glargine Solostar 100 Units/Ml 3 Ml Pen) 0 units SC HS [facility]; Protocol Stop: 03/31/21 20:59 Insulin Human NPH (Insulin Human Nph) 25 units SC DAILY [facility]; Protocol Stop: 03/31/21 08:59 Last Admin: 03/01/21 08:12 Dose: 25 units Documented by: Lamotrigine (Lamotrigine 100 Mg Tab) 100 mg PO BID [facility] Stop: 03/28/21 22:12 Last Admin: 03/01/21 08:19 Dose: 100 mg Documented by: Menthol (Cough Drop (Sugar Free) Neftali 24 Neftali/1 Box) 1 neftali BUCCAL Q6H PRN PRN Reason: Sore Throat, cough Stop: 03/30/21 22:28 Miscellaneous (Carbohydrates For Hypoglycemia ) 15 - 30 gm PO UD PRN PRN Reason: Hypoglycemia Treatment Stop: 03/28/21 23:14 Miscellaneous Information (Pharmacy Glycemic Mgmt Consult) 1 ea N/A UD PRN PRN Reason: Consult Stop: 03/28/21 22:55 Polyethylene Glycol (Polyethylene (Miralax) 17 Gm Pack) 17 gm PO DAILY PRN PRN Reason: Constipation Stop: 03/31/21 07:23 Last Admin: 03/01/21 08:19 Dose: 17 gm Documented by: Pravastatin Sodium (Pravastatin Sod 20 Mg Tab) 20 mg PO DAILY [facility] Stop: 03/29/21 08:59 Last Admin: 03/01/21 08:20 Dose: 20 mg Documented by: Pregabalin (Pregabalin 100 Mg Cap) 100 mg PO BID [facility] Stop: 03/28/21 22:12 Last Admin: 03/01/21 08:23 Dose: 100 mg Documented by: Primidone (Primidone 50 Mg Tab) 100 mg PO HS [facility] Stop: 03/30/21 20:59 Last Admin: 02/28/21 20:28 Dose: 100 mg Documented by: Rivaroxaban (Rivaroxaban 20 Mg Tab) 20 mg PO DAILY [facility] Stop: 03/29/21 08:59 Last Admin: 03/01/21 08:20 Dose: 20 mg Documented by: Sodium Bicarbonate (Sodium Bicarbonate 650 Mg Tab) 650 mg PO BID ARABELLA Stop: 03/28/21 22:12 Last Admin: 03/01/21 08:19 Dose: 650 mg Documented by: PG Care Time/CCT Total # of Minutes Spent Total Time Spent with Patient: Total time spent is greater than 50% in coordination of care (as documented) at patient's floor/unit and/or counseling patient: Coding Level of Care Code 16882 Subseq Hosp Care Lvl 3 Diagnoses Pneumonia due to COVID-19 virus U07.1; J12.82 Hypoxia R09.02 Atrial flutter I48.3 Atrial flutter type: typical Chronic kidney disease, stage III (moderate) N18.30 Recurrent falls R29.6 Type 2 diabetes mellitus E11.65; Z79.4 Diabetes mellitus complication status: with hyperglycemia Diabetes mellitus emt intermediate insulin use: with assisted use Essential hypertension I10 Obstructive sleep apnea G47.33 Coronary artery disease I25.10 Chronic congestive heart failure I50.32 Heart failure type: diastolic Peripheral neuropathy G62.9 Tremor R25.1 BPH (benign prostatic hyperplasia) N40.0 Normocytic anemia D64.9 DVT prophylaxis Z29.9 (1) Type 2 diabetes mellitus Diabetes mellitus complication status: with hyperglycemia Diabetes mellitus emt intermediate insulin use: with assisted use Qualified Code(s): E11.65 - Type 2 diabetes mellitus with hyperglycemia; Z79.4 - assisted (current) use of insulin (2) Chronic congestive heart failure Heart failure type: diastolic Qualified Code(s): I50.32 - Chronic diastolic (congestive) heart failure (3) Atrial flutter Atrial flutter type: typical Qualified Code(s): I48.3 - Typical atrial flutter
--- NOTE | 2021-03-01 13:09 | Pharmacy Report ---
Pharmacy Glycemic Short Note 2 - Date of Service March 01, 2021 - Glycemic Short BSG Results (Last 24 hours): 02/28/21 02/28/21 02/28/21 16:49 16:50 20:17 Glucose POC Glucose 354 H* 321 H* 288 H 02/28/21 03/01/21 03/01/21 23:55 03:54 07:22 Glucose 114 H POC Glucose 173 H 110 H 03/01/21 03/01/21 07:45 11:07 Glucose POC Glucose 115 H 290 H OUTPATIENT ANTIDIABETIC REGIMEN: * Humalog 18 units with breakfast + 4 units with lunch + 8 units with dinner * Unclear if he takes the following meds: glipizide, victoza, metformin * Discussed with Dr Eckert 02/26: Pt and are poor historians with outpatient regimen - are able to verbalize that he does indeed take the humalog as listed above but they aren't sure if he is taking the metformin, glipizide, or victoza. * A1c = 7.7% on 02/27/21 ASSESSMENT: 03/01/21 * Blood sugars julio throughout the day yesterday d/t IV dexamethasone, add NPH QAM today * Fasting Blood sugar 115mg/dl - at goal, place Lantus on scale based on BSG to prevent hypoglycemia * CF/CR tightened at dinnertime yesterday, continue for now 02/28/21 * Blood sugars at goal over past 24 hours except pre lunch sugar today is 276mg/dl - will tighten CR * Patient may need NPH with IV Dexamethasone if blood sugar remains elevated today, will consider starting tomorrow * Fasting Blood sugar 114mg/dl - no change in Lantus 02/27/21 * 70yo T2DM male admitted for COVID-19 PNA. Pt with severe hyperglycemia secondary to outpatient dexamethasone (for COVID) plus illness/stress. * Outpatient regimen is unclear - did not have an A1c on 02/26/21 therefore, started with weight based SQ basal bolus insulin dosing for steroid induced hyperglycemia. * Pt received Lantus 35 units SQ (0.4 units/kg) x 1 + Q4hrs NovoLog + IV insulin boluses (10 units at 2017 + 6 units at 2300) * Pt with LOW BSG this AM at 69 mg/dl. Most likely due to 13 + 28 + 12 units of NovoLog given Q4hrs overnight. * Will loosen insulin regimen today to prevent low tomorrow. PLAN FOR INPATIENT GLYCEMIC CONTROL: * Hold outpatient oral diabetes medications * Basal insulin * NPH 25 units SQ QAM with IV Dexamethasone * Lantus SQ HS * 0 units BSG < 100 * 15 units BSG 100-180 * 25 units BSG > 180 * Bolus insulin: * NovoLog per scale ACHS or Q6hrs while NPO * Goal Range: Low 110 mg/dL - High 140 mg/dL * Correction Factor: 18 mg/dL/unit * Nutritional / Prandial insulin per carb ratio of 1 unit per 5 grams CHO consumed PLAN FOR DISCHARGE: * TBD- A1c is in goal range for age/co-morbidities; however need to work with patient and educator to determine exact outpatient regimen.
[2021-03-01] MEDS: cefTRIAXone SODIUM 2,000 MG in DEXTROSE 5% 50 ML IV SCH (20:25)
[2021-03-01] MEDS: PRIMIDONE 50 MG TAB PO SCH (20:42)
[2021-03-01] MEDS: INSULIN GLARGINE SOLOSTAR 100 UNITS/ML 3 ML PEN SC SCH (20:43)
[2021-03-02 07:22] LABS: BUN Creatinine Ratio 23.8 (10-20); Calcium 7.8 mg/dl (8.5-10.1); Creatinine Clr Calc Pharmacy 45.3 ml/min; Est GFR (Non-African American) 40.5; Potassium 3.9 mmol/L (3.5-5.1)
--- NOTE | 2021-03-02 07:52 | Hospitalist Progress Note ---
Date of Service March 02, 2021 Assessment & Plan (1) Pneumonia due to COVID-19 virus: Covid isolation precautions Self prone as able Continue dexamethasone 6 mg IV daily will continue ISB, add flutter valve (helping to mobilize sputum) continue Ceftriaxone and Doxycycline, x 7 days no further fevers procalcitonin is > 1 stable on low flow nasal canula today attempt to return to baseline (2) Hypoxia: Occasionally with respiratory distress with coughing paroxysms but at rest is with no distress Aim O2 sats > 90% (3) Atrial flutter: New on last admission at [facility] TSH WNL continue carvedilol 6.25mg BID, HR is in the 60's Anticoagulation with Xarelto (4) Chronic kidney disease, stage III (moderate): Per prior notes from [facility] baseline Cr 1.85 Has returned to normal for him and stabilized (5) Recurrent falls: Very unclear history regarding this. Patient remains profoundly weak and may benefit from some rehab (6) Type 2 diabetes mellitus: HbA1C - 7.7% Novolog SS, sugars better this morning Lantus 30 units HS monitor for hypoglycemia (7) Essential hypertension: He is on many more antihypertensives that listed on [facility] notes. Possible reason for his continued dizziness at home. We will stop hydralazine and spironolactone BP stable on Coreg 6.25mg BID 130-140's systolic, no hypotensive readings (8) Obstructive sleep apnea: Unclear history of this but he denies being on CPAP at home (9) Coronary artery disease: Patient is only on Xarelto per med list from his . [facility] currently not on aspirin (10) Chronic congestive heart failure: Unclear if systolic or diastolic, not need for ECHO at this time, will attempt to get old records he examines euvolemic (11) Peripheral neuropathy: Continue Lyrica 100mg PO BID (12) Tremor: The patient reports he has Parkinson's but cannot list any medications for this. suspect he is being treated for an essential tremor with primidone. (13) BPH (benign prostatic hyperplasia): Possible diagnosis. Mentioned on [facility] notes. Patient denies being on tamsulosin or any urinary problems. Bladder scan PVR (14) Normocytic anemia: Stable at baseline (15) DVT prophylaxis: Continue Xarelto 20mg PO daily Admission and Anticipated Discharge Date Admission Date: February 26, 2021 Subjective Patient is doing well he wants to go home his saturations are actually very good after having some desaturations on 03/01/2021. He still however is on more oxygen than his baseline and he still has marked deconditioning with severe coughing paroxysms when taking deep breaths or doing minor exertion even such as talking. Review of Systems Review of Systems: Moderate distress and fatigue respiratory failure is mild to moderate accessory muscles use is seen no headache, blurry or double vision no speech or swallowing issues Chest pain with coughing but no pressure or palpitations Dyspnea on exertion productive cough no abdominal pain, nausea or vomiting, diarrhea or constipation no dysuria, hematuria or frequency no focal joint pain or swelling no back pain, CVA tenderness or radicular pain no bruising, bleeding or rashes no focal signs of weakness or numbness or altered sensation no complaints of anxiety or depression.. Physical Exam Physical Exam: The patient appeared well nourished and normally developed. Vital signs as documented. Head exam is normocephalic atraumatic Neck is without JVD, thyromegaly, or carotid bruits. Lungs are coarse breath sounds bilaterally with more rales in the right lung than left Cardiac exam, Rhythm is regular.. No murmurs, rubs or gallops. Abdominal exam reveals normal bowel sounds, soft non tender, no masses Extremities are nonedematous and both pedal pulses are present Neurologic exam is alert and oriented, no focal loss of strength or sensation Skin is without bruises or rashes Psychologically is without concerns for anxiety or depression Results & Data Results & Data ([facility]) Vital Signs (Past 12 Hours) Vital Signs Temp Pulse Pulse Resp BP Pulse Ox 03/02/21 07:09 97.5 F L 66 18 146/74 H 93 03/02/21 04:42 98.4 F 60 19 132/64 91 03/02/21 03:27 67 18 95 03/02/21 03:24 62 03/01/21 22:51 99.0 F 63 19 123/65 93 03/01/21 21:38 62 20 92 PG Care Time/CCT Total # of Minutes Spent Total Time Spent with Patient: Total time spent is greater than 50% in coordinat ion of care (as documented) at patient's floor/unit and/or counseling patient: Coding Level of Care Code 62644 Subseq Hosp Care Lvl 3 Diagnoses Pneumonia due to COVID-19 virus U07.1; J12.82 Hypoxia R09.02 Atrial flutter I48.3 Atrial flutter type: typical Chronic kidney disease, stage III (moderate) N18.30 Recurrent falls R29.6 Type 2 diabetes mellitus E11.65; Z79.4 Diabetes mellitus complication status: with hyperglycemia Diabetes mellitus manager long term care insulin use: with senior care use Essential hypertension I10 Obstructive sleep apnea G47.33 Coronary artery disease I25.10 Chronic congestive heart failure I50.32 Heart failure type: diastolic Peripheral neuropathy G62.9 Tremor R25.1 BPH (benign prostatic hyperplasia) N40.0 Normocytic anemia D64.9 DVT prophylaxis Z29.9 (1) Type 2 diabetes mellitus Diabetes mellitus complication status: with hyperglycemia Diabetes mellitus senior care insulin use: with senior care use Qualified Code(s): E11.65 - Type 2 diabetes mellitus with hyperglycemia; Z79.4 - MCC (current) use of insulin (2) Chronic congestive heart failure Heart failure type: diastolic Qualified Code(s): I50.32 - Chronic diastolic (congestive) heart failure (3) Atrial flutter Atrial flutter type: typical Qualified Code(s): I48.3 - Typical atrial flutter
[2021-03-02] MEDS: DOXYCYCLINE HYCLATE 100 MG in DEXTROSE 5% 100 ML IV SCH ×2 (08:07→19:34)
[2021-03-02] MEDS: EZETIMIBE 10 MG TABLET PO SCH (08:08)
[2021-03-02] MEDS: RIVAROXABAN 20 MG TAB PO SCH (08:08)
[2021-03-02] MEDS: PRAVASTATIN SOD 20 MG TAB PO SCH (08:08)
[2021-03-02] MEDS: SODIUM BICARBONATE 650 MG TAB PO SCH ×2 (08:08→20:38)
[2021-03-02] MEDS: dexAMETHasone 6 MG in SYRINGE 0 ML IV SCH (08:08)
[2021-03-02] MEDS: lamoTRIgine 100 MG TAB PO SCH ×2 (08:08→20:39)
[2021-03-02] MEDS: carvediloL 6.25 MG TAB PO SCH ×2 (08:09→20:39)
[2021-03-02] MEDS: PREGABALIN 100 MG CAP PO SCH ×2 (08:16→20:42)
[2021-03-02] MEDS: INSULIN ASPART 100 UNITS/ML 3 ML PEN SC SCH ×4 (08:18→20:39)
[2021-03-02] MEDS ORDERED: INSULIN HUMAN NPH SC SCH (09:00)
--- NOTE | 2021-03-02 11:37 | Pharmacy Report ---
Pharmacy Glycemic Short Note 2 - Date of Service March 02, 2021 - Glycemic Short BSG Results (Last 24 hours): 03/01/21 03/01/21 03/02/21 17:04 20:36 06:27 Glucose POC Glucose 206 H 159 H 88 03/02/21 03/02/21 06:48 11:16 Glucose 81 POC Glucose 137 H OUTPATIENT ANTIDIABETIC REGIMEN: * Humalog 18 units with breakfast + 4 units with lunch + 8 units with dinner * Unclear if he takes the following meds: glipizide, victoza, metformin * Discussed with Dr Eckert 02/26: Pt and are poor historians with outpatient regimen - are able to verbalize that he does indeed take the humalog as listed above but they aren't sure if he is taking the metformin, glipizide, or victoza. * A1c = 7.7% on 02/27/21 ASSESSMENT: 03/02/21 * Mr. Parker received a total of 83 units of insulin yesterday * 40 units basal (25 units NPH + 15 units Lantus) and 43 units bolus * BSGs were: [phone] mg/dL * Fasting BSG this AM was 88 mg/dL, below goal * Will reduced Lantus dose this evening * Lunch BSG has been elevated for several days now * Increased NPH dose to cover for steroid induced hyperglycemia * Tightened correction factor and carb ratio with breakfast only 03/01/21 * Blood sugars julio throughout the day yesterday d/t IV dexamethasone, add NPH QAM today * Fasting Blood sugar 115mg/dl - at goal, place Lantus on scale based on BSG to prevent hypoglycemia * CF/CR tightened at dinnertime yesterday, continue for now PLAN FOR INPATIENT GLYCEMIC CONTROL: * Basal insulin - decreased Lantus, increased NPH * NPH 35 units SC QAM with IV Dexamethasone (hold if dexamethasone held/discontinued) * Lantus 0-10 units SC HS * 0 units BSG < 140 mg/dL; 5 units for BSG 140-180 mg/dL; 10 units for BSG > 180 mg/dL * Bolus insulin - tightened CF/CR w/ breakfast only * NovoLog per scale ACHS or Q6hrs while NPO * Goal Range: Low 110 mg/dL - High 140 mg/dL * Breakfast: Correction Factor: 15 mg/dL/unit; Nutritional / Prandial insulin per carb ratio of 1 unit per 4 grams CHO consumed * Lunch,Dinner,HS: Correction Factor: 18 mg/dL/unit; Nutritional / Prandial insulin per carb ratio of 1 unit per 5 grams CHO consumed PLAN FOR DISCHARGE: * To be determined based on what patient is actually taking as an outpatient and whether he will go home on steroids.
[2021-03-02] MEDS: cefTRIAXone SODIUM 2,000 MG in DEXTROSE 5% 50 ML IV SCH (19:34)
[2021-03-02] MEDS: PRIMIDONE 50 MG TAB PO SCH (20:38)
[2021-03-02] MEDS: INSULIN GLARGINE SOLOSTAR 100 UNITS/ML 3 ML PEN SC SCH (20:39)
[2021-03-03] MEDS: ACETAMINOPHEN 325 MG TAB PO PRN (02:02)
--- NOTE | 2021-03-03 08:11 | Hospitalist Progress Note ---
Date of Service March 03, 2021 Assessment & Plan (1) Pneumonia due to COVID-19 virus: Covid isolation precautions Self prone as able Continue dexamethasone 6 mg IV daily will continue ISB, add flutter valve (helping to mobilize sputum) continue Ceftriaxone and Doxycycline, x 7 days no further fevers procalcitonin is > 1 stable on low flow nasal canula today near 3 liters (2) Hypoxia: Occasionally with respiratory distress with coughing paroxysms but at rest is with no distress Aim O2 sats > 90% (3) Atrial flutter: New on last admission at [facility] TSH WNL continue carvedilol 6.25mg BID, HR is in the 60's Anticoagulation with Xarelto (4) Chronic kidney disease, stage III (moderate): Per prior notes from [facility] baseline Cr 1.85 Has returned to normal for him and stabilized (5) Recurrent falls: Very unclear history regarding this. Patient remains profoundly weak and may benefit from some rehab (6) Type 2 diabetes mellitus: HbA1C - 7.7% Novolog SS, sugars better this morning Lantus 30 units HS monitor for hypoglycemia (7) Essential hypertension: He is on many more antihypertensives that listed on [facility] notes. Possible reason for his continued dizziness at home. We will stop hydralazine and spironolactone BP stable on Coreg 6.25mg BID 130-140's systolic, no hypotensive readings (8) Obstructive sleep apnea: Unclear history of this but he denies being on CPAP at home (9) Coronary artery disease: Patient is only on Xarelto per med list from his . Coreg currently not on aspirin (10) Chronic congestive heart failure: Unclear if systolic or diastolic, not need for ECHO at this time, will attempt to get old records he examines euvolemic (11) Peripheral neuropathy: Continue Lyrica 100mg PO BID (12) Tremor: The patient reports he has Parkinson's but cannot list any medications for this. suspect he is being treated for an essential tremor with primidone. (13) BPH (benign prostatic hyperplasia): Possible diagnosis. Mentioned on [facility] notes. Patient denies being on tamsulosin or any urinary problems. Bladder scan PVR (14) Normocytic anemia: Stable at baseline (15) DVT prophylaxis: Continue Xarelto 20mg PO daily Admission and Anticipated Discharge Date Admission Date: February 26, 2021 Subjective Patient is doing well he wants to go to rehab, his oxygen saturations are near his baseline and he still has marked deconditioning with severe coughing paroxysms when taking deep breaths or doing minor exertion even such as talking. He understands that he will do best if he goes to rehab Review of Systems Review of Systems: Moderate distress and fatigue respiratory failure is mild to moderate accessory muscles use is seen no headache, blurry or double vision no speech or swallowing issues Chest pain with coughing but no pressure or palpitations Dyspnea on exertion productive cough no abdominal pain, nausea or vomiting, diarrhea or constipation no dysuria, hematuria or frequency no focal joint pain or swelling no back pain, CVA tenderness or radicular pain no bruising, bleeding or rashes no focal signs of weakness or numbness or altered sensation no complaints of anxiety or depression.. Physical Exam Physical Exam: The patient appeared well nourished and normally developed. Vital signs as documented. Head exam is normocephalic atraumatic Neck is without JVD, thyromegaly, or carotid bruits. Lungs are coarse breath sounds bilaterally with more rales in the right lung than left Cardiac exam, Rhythm is regular.. No murmurs, rubs or gallops. Abdominal exam reveals normal bowel sounds, soft non tender, no masses Extremities are nonedematous and both pedal pulses are present Neurologic exam is alert and oriented, no focal loss of strength or sensation Skin is without bruises or rashes Psychologically is without concerns for anxiety or depression Results & Data Results & Data ([facility] [place]) Vital Signs (Past 12 Hours) Vital Signs Temp Pulse Pulse Resp BP Pulse Ox 03/03/21 03:55 54 L 16 94 03/03/21 03:46 51 L 03/03/21 03:00 98.6 F 54 L 22 136/81 96 03/02/21 23:00 98.2 F 62 22 149/76 H 93 03/02/21 22:41 78 18 97 PG Care Time/CCT Total # of Minutes Spent Total Time Spent with Patient: Total time spent is greater than 50% in coordination of care (as documented) at patient's floor/unit and/or counseling patient: Coding Level of Care Code 64622 Subseq Hosp Care Lvl 3 Diagnoses Pneumonia due to COVID-19 virus U07.1; J12.82 Hypoxia R09.02 Atrial flutter I48.3 Atrial flutter type: typical Chronic kidney disease, stage III (moderate) N18.30 Recurrent falls R29.6 Type 2 diabetes mellitus E11.65; Z79.4 Diabetes mellitus complication status: with hyperglycemia Diabetes mellitus assistant terminal manager insulin use: with assistant terminal manager use Essential hypertension I10 Obstructive sleep apnea G47.33 Coronary artery disease I25.10 Chronic congestive heart failure I50.32 Heart failure type: diastolic Peripheral neuropathy G62.9 Tremor R25.1 BPH (benign prostatic hyperplasia) N40.0 Normocytic anemia D64.9 DVT prophylaxis Z29.9 (1) Type 2 diabetes mellitus Diabetes mellitus complication status: with hyperglycemia Diabetes mellitus assistant terminal manager insulin use: with snf use Qualified Code(s): E11.65 - Type 2 diabetes mellitus with hyperglycemia; Z79.4 - petroleum terminal plant operator (current) use of insulin (2) Chronic congestive heart failure Heart failure type: diastolic Qualified Code(s): I50.32 - Chronic diastolic (congestive) heart failure (3) Atrial flutter Atrial flutter type: typical Qualified Code(s): I48.3 - Typical atrial flutter
[2021-03-03] MEDS: INSULIN ASPART 100 UNITS/ML 3 ML PEN SC SCH ×4 (08:52→21:03)
[2021-03-03] MEDS: DOXYCYCLINE HYCLATE 100 MG in DEXTROSE 5% 100 ML IV SCH ×2 (08:53→21:02)
[2021-03-03] MEDS: dexAMETHasone 6 MG in SYRINGE 0 ML IV SCH (08:53)
[2021-03-03] MEDS: carvediloL 6.25 MG TAB PO SCH ×2 (08:55→21:01)
[2021-03-03] MEDS: lamoTRIgine 100 MG TAB PO SCH ×2 (08:55→21:01)
[2021-03-03] MEDS: RIVAROXABAN 20 MG TAB PO SCH (08:55)
[2021-03-03] MEDS: EZETIMIBE 10 MG TABLET PO SCH (08:55)
[2021-03-03] MEDS: PRAVASTATIN SOD 20 MG TAB PO SCH (08:55)
[2021-03-03] MEDS: SODIUM BICARBONATE 650 MG TAB PO SCH ×2 (08:55→21:01)
[2021-03-03] MEDS: PREGABALIN 100 MG CAP PO SCH ×2 (08:58→21:00)
[2021-03-03] MEDS ORDERED: INSULIN HUMAN NPH SC SCH (09:00)
--- NOTE | 2021-03-03 09:42 | Pharmacy Report ---
Pharmacy Glycemic Short Note 2 - Date of Service March 03, 2021 - Glycemic Short BSG Results (Last 24 hours): 03/02/21 03/02/21 03/02/21 11:16 16:20 20:32 POC Glucose 137 H 174 H 139 H 03/03/21 08:23 POC Glucose 74 OUTPATIENT ANTIDIABETIC REGIMEN: * Humalog 18 units with breakfast + 4 units with lunch + 8 units with dinner * Unclear if he takes the following meds: glipizide, victoza, metformin * Discussed with Dr Eckert 02/26: Pt and are poor historians with outpatient regimen - are able to verbalize that he does indeed take the humalog as listed above but they aren't sure if he is taking the metformin, glipizide, or victoza. * A1c = 7.7% on 02/27/21 ASSESSMENT: 03/03: * Patient received a total of 69 units of insulin yesterday * 35 units basal (all NPH) + 34 units bolus * BSGs were: 57-320-691-139 mg/dL, acceptable * Fasting BSG this AM was 74 mg/dL, below goal * This decreased again despite not receiving any Lantus yesterday. Will discontinue Lantus for now * BSGs continue to trend upwards throughout the day * Increased NPH slightly this morning. Will tighten Novolog parameters for full day rather than just breakfast 03/02: * Mr. Parker received a total of 83 units of insulin yesterday * 40 units basal (25 units NPH + 15 units Lantus) and 43 units bolus * BSGs were: 215-406-297-159 mg/dL * Fasting BSG this AM was 88 mg/dL, below goal * Will reduced Lantus dose this evening * Lunch BSG has been elevated for several days now * Increased NPH dose to cover for steroid induced hyperglycemia * Tightened correction factor and carb ratio with breakfast only 03/01: * Blood sugars julio throughout the day yesterday d/t IV dexamethasone, add NPH QAM today * Fasting Blood sugar 115mg/dl - at goal, place Lantus on scale based on BSG to prevent hypoglycemia * CF/CR tightened at dinnertime yesterday, continue for now PLAN FOR INPATIENT GLYCEMIC CONTROL: * Basal insulin - discontinued Lantus, increased NPH * NPH 40 units SC QAM with IV Dexamethasone (hold if dexamethasone held/discontinued) * Bolus insulin - tightened CF/CR w/ breakfast only * NovoLog per scale ACHS or Q6hrs while NPO * Goal Range: Low 110 mg/dL - High 140 mg/dL * Correction Factor: 15 mg/dL/unit * Nutritional / Prandial insulin per carb ratio of 1 unit per 4 grams CHO consumed PLAN FOR DISCHARGE: * To be determined based on what patient is actually taking as an outpatient and whether he will go home on steroids.
[2021-03-03] MEDS: cefTRIAXone SODIUM 2,000 MG in DEXTROSE 5% 50 ML IV SCH (19:49)
[2021-03-03] MEDS: PRIMIDONE 50 MG TAB PO SCH (21:01)
[2021-03-04] MEDS: ACETAMINOPHEN 325 MG TAB PO PRN (00:22)
[2021-03-04] MEDS: CARBOHYDRATES FOR HYPOGLYCEMIA PO PRN ×3 (04:05→17:28)
[2021-03-04] MEDS: DOXYCYCLINE HYCLATE 100 MG in DEXTROSE 5% 100 ML IV SCH ×2 (07:39→21:19)
[2021-03-04] MEDS: carvediloL 6.25 MG TAB PO SCH ×2 (08:03→21:28)
[2021-03-04] MEDS: PREGABALIN 100 MG CAP PO SCH ×2 (08:51→21:39)
[2021-03-04] MEDS: lamoTRIgine 100 MG TAB PO SCH ×2 (08:51→21:33)
[2021-03-04] MEDS: dexAMETHasone 6 MG in SYRINGE 0 ML IV SCH (08:51)
[2021-03-04] MEDS: EZETIMIBE 10 MG TABLET PO SCH (08:52)
[2021-03-04] MEDS: RIVAROXABAN 20 MG TAB PO SCH (08:52)
[2021-03-04] MEDS: PRAVASTATIN SOD 20 MG TAB PO SCH (08:52)
[2021-03-04] MEDS: SODIUM BICARBONATE 650 MG TAB PO SCH ×2 (08:54→21:33)
[2021-03-04] MEDS: INSULIN ASPART 100 UNITS/ML 3 ML PEN SC SCH ×3 (08:58→18:25)
[2021-03-04] MEDS ORDERED: INSULIN HUMAN NPH SC SCH (09:00)
--- NOTE | 2021-03-04 10:18 | Pharmacy Report ---
Pharmacy Glycemic Short Note 2 - Date of Service March 04, 2021 - Glycemic Short BSG Results (Last 24 hours): 03/03/21 03/03/21 03/03/21 11:20 16:08 20:15 POC Glucose 226 H 218 H 180 H 03/04/21 03/04/21 03/04/21 03:55 04:16 04:23 POC Glucose 50 L* 50 L* 53 L* 03/04/21 03/04/21 04:41 07:50 POC Glucose 163 H 170 H OUTPATIENT ANTIDIABETIC REGIMEN: * Humalog 18 units with breakfast + 4 units with lunch + 8 units with dinner * Unclear if he takes the following meds: glipizide, victoza, metformin * Discussed with Dr Eckert 02/26: Pt and are poor historians with outpatient regimen - are able to verbalize that he does indeed take the humalog as listed above but they aren't sure if he is taking the metformin, glipizide, or victoza. * A1c = 7.7% on 02/27/21 ASSESSMENT: 03/04: * Mr. Parker received a total of 94 units of insulin yesterday * 40 units NPH + 54 units bolus * BSGs were: 01-430-768-180 mg/dL, uncontrolled * Patient had symptomatic hypoglycemia this AM at 50 mg/dL * Received 30 grams of CHO which only improved BSG to 53 mg/dL. Then was given an amp of D50 which increased BSG to 163 mg/dL. * Next check was 170 mg/dL. * Lantus was discontinued last night. Patient received and bedtime snack of yogurt to help with overnight hypoglycemia. Continue with uncovered HS snack. Unlikely that NPH is last > 24 hours and causing fasting hypoglycemia. * Decreased NPH dose this morning in the event that it is the cause of hypoglycemia. No Lantus will be ordered for this evening. Tightened Novolog as expecting patient's BSGs to be significantly elevated today given treatment over hypoglycemia, eating, and IV dexamethasone. Will add an overnight check to assess BSG around 0200. 03/03: * Patient received a total of 69 units of insulin yesterday * 35 units basal (all NPH) + 34 units bolus * BSGs were: 07-526-619-139 mg/dL, acceptable * Fasting BSG this AM was 74 mg/dL, below goal * This decreased again despite not receiving any Lantus yesterday. Will discontinue Lantus for now * BSGs continue to trend upwards throughout the day * Increased NPH slightly this morning. Will tighten Novolog parameters for full day rather than just breakfast 03/02: * Mr. Parker received a total of 83 units of insulin yesterday * 40 units basal (25 units NPH + 15 units Lantus) and 43 units bolus * BSGs were: 959-285-158-159 mg/dL * Fasting BSG this AM was 88 mg/dL, below goal * Will reduced Lantus dose this evening * Lunch BSG has been elevated for several days now * Increased NPH dose to cover for steroid induced hyperglycemia * Tightened correction factor and carb ratio with breakfast only PLAN FOR INPATIENT GLYCEMIC CONTROL: * Basal insulin - decreased NPH * NPH 30 units SC QAM with IV Dexamethasone (hold if dexamethasone held/discontinued) * Bolus insulin - tightened CF/CR, added overnight check * NovoLog per scale ACHS or Q6hrs while NPO * Goal Range: Low 110 mg/dL - High 140 mg/dL * Correction Factor: 15 mg/dL/unit * Nutritional / Prandial insulin per carb ratio of 1 unit per 4 grams CHO consumed PLAN FOR DISCHARGE: * HbA1c from this admission was 7.7%. No other HbA1c's available to compare to. Given this patient's age and comorbidities, would recommend a goal HbA1c of less than 8%. * Patient follows with water filter cleaner in [place]. There was initially some confusion regarding what the patient was taking at home. However, it appears that the patient takes Lantus 6 units SC Daily, Humalog 18//12 w/ meals, and Glipizide 10 mg daily. Does report some concern with fasting hyperglycemia at home. However, trend towards fasting hypoglycemia while inpatient. * Recommend: * Discontinue Glipizide at discharge. * Increase Lantus to 15 units SC daily. If patient is to be sent home on steroids, then Lantus dose may need increased further until steroids are stopped. * Change Novolog to 10 units SC with all three meals + sliding scale as follows: 0 units for BSG < 150, 1 unit for BSG 151-200, 3 units for BSG 201-250, 5 units for BSG 251-300, 7 units for BSG 301-350, 9 units for BSG 351-400, and for BSG > 400 give 11 units and call MD. * Continue to SMBG 3-4 x per day * Close follow up with water filter cleaner
--- NOTE | 2021-03-04 18:36 | Hospitalist Progress Note ---
Date of Service March 04, 2021 Assessment & Plan (1) Pneumonia due to COVID-19 virus: Covid isolation precautions Self prone as able Continue dexamethasone 6 mg IV daily will continue ISB, add flutter valve (helping to mobilize sputum) continue Ceftriaxone and Doxycycline, x 7 days now with productive cough so still with pulmonary symptoms once pulmonary symptoms improve he can come off isolation as he has had no further fevers. Chills and hypothermia this morning are likely associated with hypoglycemia procalcitonin is > 1 stable on room air (2) Hypoxia: Occasionally with respiratory distress with coughing paroxysms but at rest is with no distress Aim O2 sats > 90% (3) Atrial flutter: New on last admission at [facility] TSH WNL continue carvedilol 6.25mg BID, HR is in the 60's Anticoagulation with Xarelto (4) Chronic kidney disease, stage III (moderate): Per prior notes from [facility] baseline Cr 1.85 Has returned to normal for him and stabilized (5) Recurrent falls: Very unclear history regarding this. Patient remains profoundly weak and may benefit from some rehab (6) Type 2 diabetes mellitus: HbA1C - 7.7% Novolog SS, sugars better this morning Lantus 30 units HS Did have an episode of hypoglycemia this a.m. on 03/04/2021 (7) Essential hypertension: He is on many more antihypertensives that listed on [facility] notes. Possible reason for his continued dizziness at home. We will stop hydralazine and spironolactone BP stable on Coreg 6.25mg BID 130-140's systolic, no hypotensive readings (8) Obstructive sleep apnea: Unclear history of this but he denies being on CPAP at home (9) Coronary artery disease: Patient is only on Xarelto per med list from his . Coreg currently not on aspirin (10) Chronic congestive heart failure: Unclear if systolic or diastolic, not need for ECHO at this time, will attempt to get old records he examines euvolemic (11) Peripheral neuropathy: Continue Lyrica 100mg PO BID (12) Tremor: The patient reports he has Parkinson's but cannot list any medications for this. suspect he is being treated for an essential tremor with primidone. (13) BPH (benign prostatic hyperplasia): Possible diagnosis. Mentioned on [facility] notes. Patient denies being on tamsulosin or any urinary problems. Bladder scan PVR (14) Normocytic anemia: Stable at baseline (15) DVT prophylaxis: Continue Xarelto 20mg PO daily Admission and Anticipated Discharge Date Admission Date: February 26, 2021 Subjective Patient seeming weak and tired he did have an episode of hypoglycemia and sweatiness and hypothermia this morning. He continues have a productive cough. Review of Systems Review of Systems: Mild distress and fatigue patient had diaphoresis and fatigue this morning associate with hypoglycemia no headache, blurry or double vision no speech or swallowing issues no chest pain, pressure or palpitations Continues with shortness of breath, now with productive cough but no wheezes no abdominal pain, nausea or vomiting, diarrhea or constipation no dysuria, hematuria or frequency no focal joint pain or swelling no back pain, CVA tenderness or radicular pain no bruising, bleeding or rashes no focal signs of weakness or numbness or altered sensation no complaints of anxiety or depression.. Physical Exam Physical Exam: The patient appeared well nourished and normally developed. Very weak and tired becomes dyspneic easily with exertion Vital signs as documented. Head exam is normocephalic atraumatic Neck is without JVD, thyromegaly, or carotid bruits. Lungs are coarse breath sounds bilaterally with no focal loss Cardiac exam, Rhythm is regular.. No murmurs, rubs or gallops. Abdominal exam reveals normal bowel sounds, soft non tender, no masses Extremities are nonedematous and both pedal pulses are present Neurologic exam is alert and oriented, no focal loss of strength or sensation Skin is without bruises or rashes Psychologically is without concerns for anxiety or depression Results & Data Results & Data ([facility]) Vital Signs (Past 12 Hours) Vital Signs Temp Pulse Pulse Pulse Resp BP Pulse Ox 03/04/21 17:11 98.8 F 03/04/21 17:02 70 18 134/79 94 03/04/21 14:53 62 03/04/21 11:12 98.1 F 74 22 121/74 92 03/04/21 08:00 94 03/04/21 07:42 40 L 03/04/21 07:24 95.9 F L 47 L 24 137/63 96 PG Care Time/CCT Total # of Minutes Spent Total Time Spent with Patient: Total time spent is greater than 50% in coordination of care (as documented) at patient's floor/unit and/or counseling patient: Coding Level of Care Code 70658 Subseq Hosp Care Lvl 3 Diagnoses Pneumonia due to COVID-19 virus U07.1; J12.82 Hypoxia R09.02 Atrial flutter I48.3 Atrial flutter type: typical Chronic kidney disease, stage III (moderate) N18.30 Recurrent falls R29.6 Type 2 diabetes mellitus E11.65; Z79.4 Diabetes mellitus shelter insulin use: with termite exterminator helper use Diabetes mellitus complication status: with hyperglycemia Essential hypertension I10 Obstructive sleep apnea G47.33 Coronary artery disease I25.10 Chronic congestive heart failure I50.32 Heart failure type: diastolic Peripheral neuropathy G62.9 Tremor R25.1 BPH (benign prostatic hyperplasia) N40.0 Normocytic anemia D64.9 DVT prophylaxis Z29.9 (1) Atrial flutter Atrial flutter type: typical Qualified Code(s): I48.3 - Typical atrial flutter (2) Type 2 diabetes mellitus Diabetes mellitus termite exterminator helper insulin use: with shelter use Diabetes mellitus complication status: with hyperglycemia Qualified Code(s): E11.65 - Type 2 diabetes mellitus with hyperglycemia; Z79.4 - MCC (current) use of insulin (3) Chronic congestive heart failure Heart failure type: diastolic Qualified Code(s): I50.32 - Chronic diastolic (congestive) heart failure
[2021-03-04] MEDS: cefTRIAXone SODIUM 2,000 MG in DEXTROSE 5% 50 ML IV SCH (20:22)
[2021-03-04] MEDS: PRIMIDONE 50 MG TAB PO SCH (21:33)
[2021-03-05] MEDS: INSULIN ASPART 100 UNITS/ML 3 ML PEN SC SCH ×5 (00:25→20:15)
[2021-03-05] MEDS: SODIUM BICARBONATE 650 MG TAB PO SCH ×2 (08:45→19:54)
[2021-03-05] MEDS: RIVAROXABAN 20 MG TAB PO SCH (08:45)
[2021-03-05] MEDS: dexAMETHasone 6 MG in SYRINGE 0 ML IV SCH (08:45)
[2021-03-05] MEDS: carvediloL 6.25 MG TAB PO SCH ×2 (08:45→19:53)
[2021-03-05] MEDS: EZETIMIBE 10 MG TABLET PO SCH (08:45)
[2021-03-05] MEDS: PRAVASTATIN SOD 20 MG TAB PO SCH (08:45)
[2021-03-05] MEDS: lamoTRIgine 100 MG TAB PO SCH ×2 (08:45→19:54)
[2021-03-05] MEDS: DOXYCYCLINE HYCLATE 100 MG in DEXTROSE 5% 100 ML IV SCH ×2 (08:46→19:53)
[2021-03-05] MEDS ORDERED: INSULIN HUMAN NPH SC SCH (09:00)
[2021-03-05] MEDS: PREGABALIN 100 MG CAP PO SCH ×2 (10:09→19:59)
--- NOTE | 2021-03-05 11:57 | Hospitalist Progress Note ---
Date of Service March 05, 2021 Assessment & Plan (1) Pneumonia due to COVID-19 virus: Based on the CDC guidelines, this patient no longer requires transmission- based precautions (i.e.,no longer needing airborne precautions, contact precautions, and negative air pressure room) for COVID. this pt is now clear of covid symptoms and per the guidelines above is out of isolation but is still weak and short of breath from deconditioning completed Ceftriaxone and Doxycycline, pulmonary symptoms improved no further fevers. stable on room air (2) Hypoxia: resolved (3) Atrial flutter: New on last admission at [facility] TSH WNL continue carvedilol 6.25mg BID, HR is in the 60's Anticoagulation with Xarelto (4) Chronic kidney disease, stage III (moderate): Per prior notes from [facility] baseline Cr 1.85 Has returned to normal for him and stabilized (5) Recurrent falls: Very unclear history regarding this. Patient remains profoundly weak and will require rehab (6) Type 2 diabetes mellitus: HbA1C - 7.7% Novolog SS, sugars better this morning Esther adjusted Did have an episode of hypoglycemia this a.m. on 03/04/2021 (7) Essential hypertension: on discharge will stop hydralazine and spironolactone BP stable on Coreg 6.25mg BID (8) Obstructive sleep apnea: Unclear history of this but he denies being on CPAP at home (9) Coronary artery disease: Patient is only on Xarelto & Coreg currently not on aspirin (10) Chronic congestive heart failure: Unclear if systolic or diastolic, not need for ECHO at this time, will attempt to get old records he examines euvolemic (11) Peripheral neuropathy: Continue Lyrica 100mg PO tid (12) Tremor: The patient reports he has Parkinson's but cannot list any medications for this. suspect he is being treated for an essential tremor with primidone. (13) BPH (benign prostatic hyperplasia): Possible diagnosis. Mentioned on [facility] notes. Patient denies being on tamsulosin or any urinary problems. (14) Normocytic anemia: Stable at baseline Admission and Anticipated Discharge Date Admission Date: February 26, 2021 Subjective Patient seeming weak and tired he did have an episode of hypoglycemia and sweatiness and hypothermia this morning. He continues have a productive cough. Review of Systems Review of Systems: Mild distress and fatigue patient had diaphoresis and fatigue this morning associate with hypoglycemia no headache, blurry or double vision no speech or swallowing issues no chest pain, pressure or palpitations Continues with shortness of breath, now with productive cough but no wheezes no abdominal pain, nausea or vomiting, diarrhea or constipation no dysuria, hematuria or frequency no focal joint pain or swelling no back pain, CVA tenderness or radicular pain no bruising, bleeding or rashes no focal signs of weakness or numbness or altered sensation no complaints of anxiety or depression.. Physical Exam Physical Exam: The patient appeared well nourished and normally developed. Very weak and tired becomes dyspneic easily with exertion Vital signs as documented. Head exam is normocephalic atraumatic Neck is without JVD, thyromegaly, or carotid bruits. Lungs are coarse breath sounds bilaterally with no focal loss Cardiac exam, Rhythm is regular.. No murmurs, rubs or gallops. Abdominal exam reveals normal bowel sounds, soft non tender, no masses Extremities are nonedematous and both pedal pulses are present Neurologic exam is alert and oriented, no focal loss of strength or sensation Skin is without bruises or rashes Psychologically is without concerns for anxiety or depression Results & Data Results & Data ([facility]) Vital Signs (Past 12 Hours) Vital Signs Temp Pulse Pulse Pulse Resp BP Pulse Ox 03/05/21 11:30 97.7 F 57 L 22 173/78 H 91 03/05/21 07:14 97.3 F L 63 20 105/66 98 03/05/21 03:59 99.1 F 50 L 16 142/67 H 94 03/05/21 01:48 53 L 16 91 PG Care Time/CCT Total # of Minutes Spent Total Time Spent with Patient: Total time spent is greater than 50% in coordination of care (as documented) at patient's floor/unit and/or counseling patient: Coding Level of Care Code 06677 Subseq Hosp Care Lvl 3 Diagnoses Pneumonia due to COVID-19 virus U07.1; J12.82 Hypoxia R09.02 Atrial flutter I48.3 Atrial flutter type: typical Chronic kidney disease, stage III (moderate) N18.30 Recurrent falls R29.6 Type 2 diabetes mellitus E11.65; Z79.4 Diabetes mellitus superintendent marine oil terminal insulin use: with shelter use Diabetes mellitus complication status: with hyperglycemia Essential hypertension I10 Obstructive sleep apnea G47.33 Coronary artery disease I25.10 Chronic congestive heart failure I50.32 Heart failure type: diastolic Peripheral neuropathy G62.9 Tremor R25.1 BPH (benign prostatic hyperplasia) N40.0 Normocytic anemia D64.9 (1) Atrial flutter Atrial flutter type: typical Qualified Code(s): I48.3 - Typical atrial flutter (2) Type 2 diabetes mellitus Diabetes mellitus superintendent marine oil terminal insulin use: with shelter use Diabetes mellitus complication status: with hyperglycemia Qualified Code(s): E11.65 - Type 2 diabetes mellitus with hyperglycemia; Z79.4 - exterminator helper termite (current) use of insulin (3) Chronic congestive heart failure Heart failure type: diastolic Qualified Code(s): I50.32 - Chronic diastolic (congestive) heart failure
--- NOTE | 2021-03-05 15:12 | Pharmacy Report ---
Pharmacy Glycemic Short Note 2 - Date of Service March 05, 2021 - Glycemic Short BSG Results (Last 24 hours): 03/04/21 03/04/21 03/04/21 17:04 17:28 17:44 POC Glucose 58 L* 53 L* 66 L* 03/04/21 03/04/21 03/05/21 18:00 20:38 04:19 POC Glucose 111 H 169 H 138 H 03/05/21 03/05/21 07:13 11:32 POC Glucose 111 H 228 H OUTPATIENT ANTIDIABETIC REGIMEN: * Lantus 6 units SQ daily * Humalog 18 units with breakfast + 4 units with lunch + 8 units with dinner * Unclear if he takes the following meds: glipizide, victoza, metformin * Discussed with Dr Eckert 02/26: Pt and are poor historians with outpatient regimen - are able to verbalize that he does indeed take the humalog as listed above but they aren't sure if he is taking the metformin, glipizide, or victoza. * A1c = 7.7% on 02/27/21 ASSESSMENT: 03/05/21: * Despite a ~25% reduction in basal insulin yesterday, patient had another episode of hypoglycemia yesterday evening. * Novolog parameters loosened last evening to provide significantly less carb coverage/correction. * NPH dose also reduced again this morning in an attempt to avoid further hypoglycemia. * Will continue to monitor and adjust as needed. 03/04 * Mr. Parker received a total of 94 units of insulin yesterday * 40 units NPH + 54 units bolus * BSGs were: 71-044-202-180 mg/dL, uncontrolled * Patient had symptomatic hypoglycemia this AM at 50 mg/dL * Received 30 grams of CHO which only improved BSG to 53 mg/dL. Then was given an amp of D50 which increased BSG to 163 mg/dL. * Next check was 170 mg/dL. * Lantus was discontinued last night. Patient received and bedtime snack of yogurt to help with overnight hypoglycemia. Continue with uncovered HS snack. Unlikely that NPH is last > 24 hours and causing fasting hypoglycemia. * Decreased NPH dose this morning in the event that it is the cause of hypoglycemia. No Lantus will be ordered for this evening. Tightened Novolog as expecting patient's BSGs to be significantly elevated today given treatment over hypoglycemia, eating, and IV dexamethasone. Will add an overnight check to assess BSG around 0200. PLAN FOR INPATIENT GLYCEMIC CONTROL: * Basal insulin - decreased NPH * NPH 25 units SC QAM with IV Dexamethasone (hold if dexamethasone held/discontinued) * Bolus insulin - * NovoLog per scale ACHS or Q6hrs while NPO * Goal Range: Low 110 mg/dL - High 140 mg/dL * Correction Factor: 15 mg/dL/unit * Nutritional / Prandial insulin per carb ratio of 1 unit per 6 grams CHO consumed PLAN FOR DISCHARGE: * HbA1c from this admission was 7.7%. No other HbA1c's available to compare to. Given this patient's age and comorbidities, would recommend a goal HbA1c of less than 8%. * Patient follows with swing saw operator in [place]. There was initially some confusion regarding what the patient was taking at home. However, it appears that the patient takes Lantus 6 units SC Daily, Humalog 18/4/12 w/ meals, and Glipizide 10 mg daily. Does report some concern with fasting hyperglycemia at home. However, trend towards fasting hypoglycemia while inpatient. * Recommend: * Discontinue Glipizide at discharge. * Increase Lantus to 15 units SC daily. If patient is to be sent home on steroids, then Lantus dose may need increased further until steroids are stopped. * Change Novolog to 10 units SC with all three meals + sliding scale as follows: 0 units for BSG < 150, 1 unit for BSG 151-200, 3 units for BSG 201-250, 5 units for BSG 251-300, 7 units for BSG 301-350, 9 units for BSG 351-400, and for BSG > 400 give 11 units and call MD. * Continue to SMBG 3-4 x per day * Close follow up with swing saw operator
[2021-03-05] MEDS: cefTRIAXone SODIUM 2,000 MG in DEXTROSE 5% 50 ML IV SCH (19:52)
[2021-03-05] MEDS: PRIMIDONE 50 MG TAB PO SCH (19:55)
[2021-03-06] MEDS: INSULIN ASPART 100 UNITS/ML 3 ML PEN SC SCH (08:44)
[2021-03-06] MEDS: lamoTRIgine 100 MG TAB PO SCH (08:51)
[2021-03-06] MEDS: EZETIMIBE 10 MG TABLET PO SCH (08:51)
[2021-03-06] MEDS: PRAVASTATIN SOD 20 MG TAB PO SCH (08:51)
[2021-03-06] MEDS: RIVAROXABAN 20 MG TAB PO SCH (08:51)
[2021-03-06] MEDS: SODIUM BICARBONATE 650 MG TAB PO SCH (08:52)
[2021-03-06] MEDS: carvediloL 6.25 MG TAB PO SCH (08:52)
[2021-03-06] MEDS: PREGABALIN 100 MG CAP PO SCH (08:57)
[2021-03-06] MEDS ORDERED: INSULIN HUMAN NPH SC SCH (09:00)
[2021-03-06] MEDS: DOXYCYCLINE HYCLATE 100 MG in DEXTROSE 5% 100 ML IV SCH (10:10)
--- NOTE | 2021-03-06 18:44 | Discharge Summary ---
Date of Service March 06, 2021 Admission HPI Per Admitting Provider Rickey Parker is a 70-year-old male who presents to the ER via EMS with COVID-19 with worsening fatigue and shortness of breath. Unclear when his symptoms started per patient recollection. He was admitted at [facility] from 02/17/21 to 02/19/21 due to a fall at home (tripped over carpet and hit his head on recliner) and notes 1 week of symptoms in those notes. On admission he was noted to have COVID-19 pneumonia but was not hypoxic at that time so no treatment was started. He was noted to have new onset atrial flutter (unknown whether TTE was taken). It was noted on cardiology note that he was rate controlled with his usual carvedilol but there is no outpatient prescription of this and the patient and his deny they are taking it. He was started on Xarelto for anticoagulation. It does note ORA on [facility] notes with Cr 2.08 however on calling the [facility] lab his baseline is around 1.85 from December. He was started on oral dexamethasone 02/24 by his PCP. The patient is very unclear on the timeline of events and paperwork from [facility] suggests a very different medical regimen from what he, his and the external pharmacy med rec is suggesting he takes. In the ER CT head was negative for acute intracranial abnormalities but did not opacification of left maxillary sinus (also noted on CT in [place]). CXR concerning for moderate bilateral airspace opacities consistent with an infectious process such as viral pneumonia. He was referred to medicine for admission and ongoing management of COVID-19 and hypoxia. Principal Diagnosis covid pneumonia Discharge Exam The patient appeared to be convalescing from his significant pneumonia Vital signs as documented. Lungs are bilaterally but are clearing Cardiac exam, Rhythm is regular.. Systolic ejection murmur Abdominal exam reveals normal bowel sounds, soft non tender, no masses Extremities are nonedematous and both pedal pulses are normal. Neurologic exam is alert and oriented, no focal loss of strength or sensation Skin is with healing eschars on his head from falling Psychologically is without concerns for anxiety or depression. Discharge Data Allergies Allergy/AdvReac Type Severity Reaction Status Date / Time atorvastatin [From Lipitor] AdvReac Myalgia Verified 02/26/21 18:02 rosuvastatin [From Crestor] AdvReac Myalgia Verified 02/26/21 18:02 simvastatin AdvReac Myalgia Verified 02/26/21 18:02 Consultations 02/26/21 17:21 ED Decision to Admit Stat 02/26/21 17:38 Consult Health Information Management Stat 02/26/21 22:13 Consult Health Information Management Routine Consult Health Information Management Routine Consult Health Information Management Routine Ordered Studies 02/26/21 15:47 CT head/brain wo con Stat Hospital Course (1) Pneumonia due to COVID-19 virus: Based on the CDC guidelines, this patient no longer requires transmission- based precautions (i.e.,no longer needing airborne precautions, contact precautions, and negative air pressure room) for COVID. this pt is now clear of covid symptoms and per the guidelines above is out of isolation but is still weak and short of breath from deconditioning completed Ceftriaxone and Doxycycline, pulmonary symptoms improved no further fevers. stable on room air (2) Hypoxia: resolved (3) Atrial flutter: New on last admission at [facility] TSH WNL continue carvedilol 6.25mg BID, HR is in the 60's Anticoagulation with Xarelto (4) Chronic kidney disease, stage III (moderate): Per prior notes from [facility] baseline Cr 1.85 Has returned to normal for him and stabilized (5) Recurrent falls: Very unclear history regarding this. Patient remains profoundly weak and will require rehab (6) Type 2 diabetes mellitus: HbA1C - 7.7% Novolog SS, sugars better this morning Philippt adjusted Did have an episode of hypoglycemia this a.m. on 03/04/2021 (7) Essential hypertension: on discharge will stop hydralazine and spironolactone BP stable on Coreg 6.25mg BID (8) Obstructive sleep apnea: Unclear history of this but he denies being on CPAP at home (9) Coronary artery disease: Patient is only on Xarelto & Coreg currently not on aspirin (10) Chronic congestive heart failure: Unclear if systolic or diastolic, not need for ECHO at this time, will attempt to get old records he examines euvolemic (11) Peripheral neuropathy: Continue Lyrica 100mg PO tid (12) Tremor: The patient reports he has Parkinson's but cannot list any medications for this. suspect he is being treated for an essential tremor with primidone. (13) BPH (benign prostatic hyperplasia): Possible diagnosis. Mentioned on [facility] [place] notes. Patient denies being on tamsulosin or any urinary problems. (14) Normocytic anemia: Stable at baseline Total Time Total Time Spent Total Time Spent (In Minutes): It required greater than 30 minutes to prepare this patient for discharge Discharge Plan Discharge Items Patient Disposition: Transfer Longterm Fac Reason For Visit: COVID-19 FALL Discharge Diagnosis: covid pneumonia, improved diabetes chronic kidney disease Coronary artery disease Activity: Per Instructions section Non-emergency contact: Primary Care Provider Call non-emergency contact if: you have any medication questions and your symptoms worsen Follow-up/Referrals: Eduard Saldana D.O. [Primary Care Provider] - Diet: Carb Consistent or DM2 and Dialysis Renal Addtl Attending Provider Instructions: pt did have many antihypertensive medicines stopped during this stay, including isosorbide and sprinolactone, watch his blood pressure and cardiac symptoms you are now off of Covid restrictions, but still use recommend social distancing and wear masks in public the pt is stil having adjustments to insulin and this will need to be watched and adjusted Pending Studies at Discharge: No Stand-Alone Forms: My [facility] Skilled Items Patient informed of condition?: Yes DNR: No Discharge Level of Care: Skilled Communicable Disease: No Discharge Prognosis: Stable Lines: None Urinary Catheter: No Medications and DC Order Prescriptions: New carvedilol 6.25 mg Tablet 6.25 mg PO BID Qty: 60 RF: 0 Continued primidone 50 mg tablet 50 mg PO UD RF: 0 lamotrigine 200 mg tablet 100 mg PO BID RF: 0 pravastatin 20 mg tablet 20 mg PO DAILY RF: 0 ezetimibe 10 mg tablet 10 mg PO DAILY RF: 0 pregabalin 100 mg capsule 100 mg PO BID RF: 0 Xarelto 20 mg tablet 20 mg PO DAILY RF: 0 sodium bicarbonate 650 mg tablet 650 mg PO BID RF: 0 insulin lispro [Humalog KwikPen Insulin] 100 unit/mL insulin pen See Rx Instructions .ROUTE .COMPLEX RF: 0 Discharge Orders: Discharge Order (Routine); Ordered 03/06/21 Ordered By: Darek Hebert/Other Patient Handouts: Managing Type 2 Diabetes, Managing Diabetes: The A1C Test Admission Data Admit Date/Time: 02/26/21 19:32 Attending Provider: Darek Wallace Admit Provider: Fausto Eckert Primary Care Provider: Eduard Saldana Other Providers: Fausto Eckert ; [facility] ; Geovanny Maki ; [facility], Other Interventions: Discharge Summary Assessment (RN) Last Done: 03/06/21 16:05 Coding Level of Care Code D/C Day Management >30 mins Diagnoses Pneumonia due to COVID-19 virus U07.1; J12.82 Hypoxia R09.02 Atrial flutter I48.3 Atrial flutter type: typical Chronic kidney disease, stage III (moderate) N18.30 Recurrent falls R29.6 Type 2 diabetes mellitus E11.65; Z79.4 Diabetes mellitus care home insulin use: with care home use Diabetes mellitus complication status: with hyperglycemia Essential hypertension I10 Obstructive sleep apnea G47.33 Coronary artery disease I25.10 Chronic congestive heart failure I50.32 Heart failure type: diastolic Peripheral neuropathy G62.9 Tremor R25.1 BPH (benign prostatic hyperplasia) N40.0 Normocytic anemia D64.9
== END 2021-03-06 16:25 | DRG 177 ==
LOC: ED 15:22 → SUATTDRO 19:32 → 2S 19:32